=== PATIENT | female | born 1990 | race Caucasian/White ===

== ENCOUNTER → 2018-11-09 | Outpatient (CLI) | payer OTHER, SELFPAY ==
[2018-11-09 14:44] VITALS: BMI 18.7
[2018-11-09 22:49] LABS: Chlamydia Trachomatis by PCR Negative (Negative); Neisserai gonorrhoeae by PCR Negative (Negative); Probe Check PASS; Sample Adequacy Control PASS; Specimen Processing Control PASS
[2018-11-14 13:36] LABS: HPV Reflexed? NOT INDICATED
== END | disposition home or self-care (01) ==
PROVIDERS: Obstetrics & Gynecology; Referring Provider Nurse Practitioner Women's Health; Visit Provider Nurse Practitioner Women's Health
DX: Z34.90 Encounter for supervision of normal pregnancy, unspecified, unspecified trimester (principal)
CPT/HCPCS: 87086; 87088; 87491; 87591; 88175; G0145

== ENCOUNTER → 2018-11-12 | Outpatient (CLI) | payer OTHER, SELFPAY ==
[2018-11-09 14:44] VITALS: BMI 18.7
[2018-11-12 16:06] LABS: Absolute Lymphocyte Count 1.97 X10^3/uL (0.83-4.51); Basophil# 0.05 X10^3/uL; Basophil% 0.6 % (0-1); Eosinophil# 0.07 X10^3/uL; Eosinophils% 0.9 % (0-5); Hematocrit 38.7 % (37-47); Hemoglobin 13.3 g/dL (12.0-15.0); Lymphocyte # 1.97 X10^3/ul (4.0); Lymphocyte % 25.5 % (19-41); Mean Corp Hgb Conc 34.4 g/dL (32-36); Mean Corpuscular Hgb 31.4 pg (27.0-32.0); Mean Corpuscular Volume 91.3 fL (81-99); Mean Platelet Vol. 9.8 fl (6.2-12.0); Monocyte# 0.64 X10^3/uL; Monocyte% 8.3 % (0-10); NRBC Flagged by Analyzer 0 % (0-5); Neutrophil # 4.97 X10^3/uL (2.7-7.7); Neutrophil % 64.2 % (47-70); Platelet Count 259 K/mm3 (150-450); RBC Distribution Width CV 11.9 % (11.6-14.6); RBC Distribution Width SD 39.3 fl (35.1-43.9); Red Blood Count 4.24 M/mm3 (4.2-5.4); White Blood Count 7.7 K/mm3 (4.4-11.0)
[2018-11-12 16:37] LABS: AST(SGOT) 9 U/L (15-37); Alanine Aminotransfer ALT/SGPT 15 U/L (13-56); Albumin, Serum 3.4 g/dL (3.2-5.0); Alkaline Phosphatase 37 U/L (45-117); Anion Gap 7 (5-15); BUN 8 mg/dL (7-18); BUN/Creat Ratio 15.8 RATIO (10-20); Calcium,Total 8.4 mg/dL (8.5-10.1); Chloride 105 mmol/L (98-107); EST Glomerular Filtration Rate 155 mL/min (>60); Est Glom Filt Rate - Afr Amer 188 mL/min (>60); Globulin 3.4 g/dL (2.2-4.2); Glucose 94 mg/dL (74-106); Potassium 3.7 mmol/L (3.5-5.1); Protein, Total 6.8 g/dL (6.4-8.2); Sodium Level 139 mmol/L (136-145)
[2018-11-12 17:23] LABS: HIV - WCH Non-Reactive (Nonreactive)
[2018-11-19 02:40] LABS: Rapid Plasmin Reagin (RPR) NONREACTIVE (NONREACTIVE)
== END | disposition home or self-care (01) ==
LOC: LAB 15:23
PROVIDERS: Family Provider Family Medicine; PCP Family Medicine; Referring Provider Obstetrics & Gynecology; Visit Provider Obstetrics & Gynecology
DX: O09.299 Supervision of pregnancy with other poor reproductive or obstetric history, unspecified trimester (principal); Z3A.00 Weeks of gestation of pregnancy not specified
CPT/HCPCS: 36415; 80053; 85025; 86592; 86703; 86762; 86850; 86900; 86901

== ENCOUNTER → 2019-03-21 | Outpatient (CLI) | payer OTHER, SELFPAY ==
[2019-02-28 15:40] VITALS: BMI 18.7
[2019-03-21 15:43] LABS: Absolute Lymphocyte Count 1.81 X10^3/uL (0.83-4.51); Absolute Neutrophil Count 6.4 X10^3/uL (2.0-7.7); Basophil# 0.03 X10^3/uL; Basophil% 0.3 % (0-1); Eosinophil# 0.07 X10^3/uL; Eosinophils% 0.8 % (0-5); Hemoglobin 12.1 g/dL (12.0-15.0); Lymphocyte # 1.81 X10^3/ul (4.0); Lymphocyte % 20.1 % (19-41); Mean Corp Hgb Conc 33.6 g/dL (32-36); Mean Corpuscular Hgb 30.9 pg (27.0-32.0); Mean Corpuscular Volume 91.8 fL (81-99); Mean Platelet Vol. 9.8 fl (6.2-12.0); Monocyte# 0.65 X10^3/uL; Monocyte% 7.2 % (0-10); NRBC Flagged by Analyzer 0 % (0-5); Neutrophil # 6.35 X10^3/uL (2.7-7.7); Neutrophil % 70.6 % (47-70); Platelet Count 219 K/mm3 (150-450); RBC Distribution Width CV 12.8 % (11.6-14.6); RBC Distribution Width SD 41.8 fl (35.1-43.9); Red Blood Count 3.92 M/mm3 (4.2-5.4)
[2019-03-21 15:44] LABS: Glucose Challenge Gest 1H 50g 108 mg/dL (70-140)
[2019-03-22 09:21] LABS: Hepatitis B Surface Antigen Non-Reactive (Nonreactive)
== END | disposition home or self-care (01) ==
LOC: PAVLAB 14:55
PROVIDERS: PCP Family Medicine; Referring Provider Obstetrics & Gynecology; Visit Provider Obstetrics & Gynecology
DX: Z34.80 Encounter for supervision of other normal pregnancy, unspecified trimester (principal)
CPT/HCPCS: 36415; 82950; 85025; 87340

== ENCOUNTER → 2019-05-16 | Outpatient (CLI) | payer OTHER, SELFPAY ==
[2019-05-16 15:27] VITALS: BMI 18.7
== END | disposition home or self-care (01) ==
LOC: LAB 16:38 → LABSPEC 05-17 14:19
PROVIDERS: PCP Family Medicine; Referring Provider Obstetrics & Gynecology; Visit Provider Obstetrics & Gynecology
DX: Z34.80 Encounter for supervision of other normal pregnancy, unspecified trimester (principal)
CPT/HCPCS: 87081

== ENCOUNTER 2019-06-13 01:10 | Inpatient (IN) | payer OTHER, SELFPAY ==
[2019-02-28 15:40] VITALS: BMI 18.7
[2019-06-06 15:34] VITALS: BMI 18.7
[2019-06-12 22:03] VITALS: BP 124/78; PULSE 107; PULSE 93; TEMP 37.1; O2SAT 97
[2019-06-12 22:14] VITALS: BMI 24.3
[2019-06-13] VITALS (82 sets, daily range): BP systolic 98–208; BP diastolic 55–137; PULSE 84–151; RESP 16; TEMP 36.5–37.2; O2SAT 91–100
[2019-06-13] MEDS: Acetaminophen 500 MG Tablet 1000 MG PO (00:29)
[2019-06-13] MEDS: Lactated Ringers 500 ML 999 ML IV ×2 (01:34→05:54)
[2019-06-13 01:49] LABS: Absolute Lymphocyte Count 2.32 X10^3/uL (0.83-4.51); Absolute Neutrophil Count 11.4 X10^3/uL (2.0-7.7); Basophil# 0.09 X10^3/uL; Basophil% 0.6 % (0-1); Eosinophil# 0.02 X10^3/uL; Eosinophils% 0.1 % (0-5); Hematocrit 40.8 % (37-47); Hemoglobin 14.4 g/dL (12.0-15.0); Lymphocyte # 2.32 X10^3/ul (4.0); Lymphocyte % 15.4 % (19-41); Mean Corp Hgb Conc 35.3 g/dL (32-36); Mean Corpuscular Hgb 31.9 pg (27.0-32.0); Mean Corpuscular Volume 90.5 fL (81-99); Mean Platelet Vol. 10.1 fl (6.2-12.0); Monocyte# 0.99 X10^3/uL; Monocyte% 6.6 % (0-10); NRBC Flagged by Analyzer 0 % (0-5); Neutrophil # 11.42 X10^3/uL (2.7-7.7); Neutrophil % 75.6 % (47-70); Platelet Count 212 K/mm3 (150-450); RBC Distribution Width CV 12.7 % (11.6-14.6); RBC Distribution Width SD 41.1 fl (35.1-43.9); Red Blood Count 4.51 M/mm3 (4.2-5.4); White Blood Count 15.1 K/mm3 (4.4-11.0)
[2019-06-13] MEDS: Lactated Ringers 1,000 ML 200 ML IV ×3 (02:05→12:05)
[2019-06-13] MEDS: fentaNYL-bupivacaine (epidural) 100 ML BAG EPIDURAL ×2 (02:42→07:45)
--- NOTE | 2019-06-13 07:42 | HP.PCM_ITS ---
- Problem List (1) Active labor at term Status: Acute (2) Influenza vaccination declined Status: Acute (3) H/O pre-eclampsia in prior , currently Status: Acute Comment: Baby ASA baseline labs (4) Supervision of other normal Status: Acute Comment: PRR HUNG 06/08/19 boy Javier Barnett Spouse Sebastian (5) Status: Acute Qualifiers: Comment: Declines genetic, carrier and NTD. Anatomy US normal (6) H/O section Status: Acute Comment: TOLAC (7) hemorrhage Status: Acute Qualifiers: Comment: 2 weeks after- no blood transfusion needed. History Date of Admission: 06/13/19 Final HUNG: 06/08/19 Gestational age: 40 Weeks and 5 Days History of this : This is a 28 year-old, , at 40 weeks gestational age presents in active labor now made spontaneous change to 5 cm. Patient has had regular contractions starting last night and denies any loss of fluid has had some small amount of bloody show likely due to cervical change. Patient has a history of a primary for heart rate decelerations and is wanting to proceed with trial of labor after . Had 82% likely of success stomach calculator. Medical History: Medical History (Last Reviewed 06/06/19 @ 15:34 by Britta Dee) History of pre-eclampsia Z87.59 Surgical History: Surgical History (Last Reviewed 06/06/19 @ 15:34 by Britta Dee) delivery delivered O82 x1; decel Allergies No Known Allergies Allergy (Verified 06/12/19 22:16) Home Medications: Home Medications vitamin#30 30 mg iron-10 mg iron-folic acid 1 mg-omg3 capsule 1 cap PO DAILY cap 11/09/18 Aspirin [Aspir 81] 81 mg PO DAILY 06/13/19 Smoking Status: Never smoker NST - FHR Rate Baby A Baseline: 130 Variability:: Moderate Accelerations:: 15 x 15 Decelerations:: None NST Reactive:: Yes FHR Category:: Category I Uterine Activity:: q 2-4 History Past Pregnancies: Past PregnanciesPregancy History 2 Elective abortions Hx Para 1 Spontaneous abortions Hx # Term Pregnancies Ectopic pregnancies Hx # Pregnancies Multiple births # of living children Past Pregnancies Del. Date Name GA/Weeks Outcome Route Bth Weight Gen Labor Lgth Anesthesia Del [facility] Provider FOB 05/14/17 Anibal 39 live - full term 5.7 Male epidural [facility] Delivery Date: 05/14/17 On 11/09/18 @ 13:50 Monica Baker decel Labs: Mom's Labs & Results 06/13/19 06/13/19 01:31 01:31 WBC 15.1 H RBC 4.51 Hgb 14.4 Hct 40.8 MCV 90.5 MCH 31.9 MCHC 35.3 RDW Std Deviation 41.1 RDW Coeff of Janki 12.7 Plt Count 212 MPV 10.1 Immature Gran % (Auto) 1.700 H Neut % (Auto) 75.6 H Lymph % (Auto) 15.4 L [place] % (Auto) 6.6 Eos % (Auto) 0.1 Baso % (Auto) 0.6 Absolute Neuts (auto) 11.4 H Absolute Lymphs (auto) 2.32 Nucleated RBC % 0 Blood Type A POSITIVE Antibody Screen NEGATIVE Course Did the patient receive Yes care? Labs Blood Type: A RH: POSITIVE RPR/VDRL/Syphilis Nonreactive Rubella status Immune HbSAg Negative Date Done: 03/21/19 Chlamydia Negative Gonorrhea Negative HIV/AIDS Non-Reactive Group B Strep: Negative Current Obstetrical History Gestational Diabetes No Incompetent Cervix No Infertility No IUGR No Macrosomia No Hypertension/Pre-eclampsia No Placenta Previa/Abruption No PTL/PROM No Uterine anomaly No Oligohydramnios No Polyhydramnios No Multiple gestation No Past Medical History Asthma No Diabetes No Hypertension No Heart disease No Mitral valve prolapse No Neurologic/Seizure disorder/ No Migraines Kidney disease No Liver disease No Varicosities No Clotting disorders/Hx of DVT No Thyroid Dysfunction No Other medical diseases No Psychiatric disorders No Major trauma No Abnormal PAP smear No Sleep apnea No Mammogram in the last 2 years No Social History Marital Status: Alleged father Sebastian Edgar Hx Smoking No Smoking Status Never smoker Expected Delivery Method: Describe any other labor & delivery plans:: Expected Delivery Route/Plan. TOLAC. patient counseled regarding risks/benefits of trial of labor versus repeat . ACOG and uptodate education given to patient. 82 % likelihood of success per calculator. TOLAC consent form signed: yes. Labor Preferences-. labor support person: Sebastian. pain management options preferred: epidural. cut cord/dad catch: yes. : yes. PP control pl anned: []. discussed possible routes of delivery and associated risks: []. special requests: []. Specific Issue/Plans. flu vaccine: declined. tdap vaccine: declined. rhogam: na. LARC form signed: yes. movement and labor precautions reviewed. Problem list reviewed and updated with the most current plan of care details and appropriate orders placed. Relevant counseling for the gestational age provided. Continue routine care and follow up unless otherwise noted in visit notes/problem list details Review of Systems Constitutional: Denies: Fever, Malaise Eyes: Denies: Blurred vision, Vision Change HEENT: Denies: Head Aches, Visual Changes Cardiovascular: Denies: Chest Pain, Palpitations Respiratory: Denies: Cough, Shortness of Breath, Wheezing Gastrointestinal: Denies: Abdominal Pain, Diarrhea, Nausea, Vomiting Genitourinary: Denies: Dysuria, Hematuria Musculoskeletal: Denies: Joint Pain, Muscle pain Skin: Denies: Lesions, Rash Neurological: Denies: Blurred vision, Focal weakness, Headaches Psychiatric: Denies: Anxiety, Depression Endocrine: Denies: Heat/ Cold Intolerance Hematologic/ Lymphatic: Denies: Easy Bruising, Easy Bleeding Physical Exam Vitals: Vital Signs Temp Pulse BP Pulse Ox 98.6 F 96 104/61 99 06/13/19 07:26 06/13/19 07:27 06/13/19 07:27 06/13/19 07:27 General: Alert, Cooperative, No apparent distress HEENT: Atraumatic, Normocephalic. Negative for: Thyromegaly, Lymphadenopathy Cardiovascular: Regular rate Lungs: Normal air movement Abdomen: Soft, Non Tender, Gravid Neurological: Deep Tendon Reflexes 2+/4 and Symmetrical, Neuro grossly intact. Negative for: Clonus RESPIRATORY THERAPIST: Normal external genitalia. Negative for: Vulvar lesions Estimated gestational size: Appropriate for gestational size Presentation: Cephalic Cervix Dilation (cm): 5 Station: 0 Effacement (%): 90 Assessment/Plan All Active Problems (Last Reviewed 06/06/19 @ 15:34 by Britta Dee) Active labor at term (Acute) Influenza vaccination declined (Acute) H/O pre-eclampsia in prior , currently (Acute) Supervision of other normal (Acute) (Acute) H/O section (Acute) hemorrhage (Acute) This is a 28 year-old, , at 40 weeks gestational age presents in active labor desires trial of labor after Patient presents IAL, plan expectant management for , AROM clear fluid. Pitocin if no cervical change. IUPC placed.. Pain management: Epidural GBS negative. Management of any complications: TOLAC with consent form signed I have reviewed the [facility] and made any clinically relevant updates.
[2019-06-13] MEDS: Ondansetron 4 MG/2 ML Vial IV (12:00)
--- NOTE | 2019-06-13 12:33 | PCM.OPRPT ---
Problem List (1) Active labor at term Status: Acute (2) Influenza vaccination declined Status: Acute (3) H/O pre-eclampsia in prior , currently Status: Acute Comment: Baby ASA baseline labs (4) Supervision of other normal Status: Acute Comment: PRR HUNG 06/08/19 boy Javier Barnett Spouse Sebastian (5) Status: Acute Qualifiers: Comment: Declines genetic, carrier and NTD. Anatomy US normal (6) H/O section Status: Acute Comment: TOLAC (7) hemorrhage Status: Acute Qualifiers: Comment: 2 weeks after- no blood transfusion needed. Vaginal Delivery Maternal Presentation: Active Labor 28 yo @ 40w presents IAL desires TOLAC Amniotic Membrane Rupture Type: Artificial Amniotic Fluid Description: Clear Final HUNG: 06/08/19 Gestational age: 40 Weeks and 5 Days Date of Procedure: 06/13/19 Pre-Operative Diagnosis: ial Post-Operative Diagnosis: same Surgery/ Procedure Performed: Spontaneous Vaginal Delivery - Type of Anesthesia: Epidural Description of Procedure: Patient began pushing and delivered the head in the [JOSÉ] presentation. The head was delivered atraumatically [and a loose nuchal cord ?1 was identified and easily reduced over the 's head]. The anterior and posterior shoulders delivered without complication followed by the rest of the and the was placed on the maternal abdomen. Delayed cord clamping was employed for approximately 60 seconds. Cord was clamped and cut and gentle traction was applied to the cord and the placenta delivered spontaneously immediately following it was noted to be intact with three-vessel cord. The perineum and vagina were inspected and [noted to have no laceration]. EBL was [100 cc]. Patient and tolerated delivery well. Multi Select Codes - Urinary/Genital Urinary/Genital CPT Codes: 41056 delivery [facility]
[2019-06-13] MEDS: Oxytocin 30 units/NS 500 ml 30 UNITS/500 ML IV.SOLN 334 UNITS IV (13:30)
[2019-06-13] MEDS: 0.9% Saline Lock 10 ML Syringe IV (16:05)
--- NOTE | 2019-06-13 17:56 | NURSING ---
dr suarez made aware of elevated maternal heart rate during recovery; bria nugent; pt encouraged to drink PO fluids
[2019-06-13] MEDS: Senna/Docusate Sodium 1 Tablet PO (20:01)
[2019-06-14] MEDS: Naproxen 250 MG Tablet 500 MG PO ×2 (00:08→08:44)
[2019-06-14 00:28] VITALS: BP 112/82; PULSE 132; RESP 16; TEMP 37.3
--- NOTE | 2019-06-14 00:30 | NURSING ---
was communicated in report that pt has elevated HR. pt asymptomatic and states this has been normal for her. will continue to monitor closely.
[2019-06-14 03:39] VITALS: BP 93/54; PULSE 94; RESP 16; TEMP 36.4
--- NOTE | 2019-06-14 07:51 | PCM.PN.OB ---
Patient Problems: Active and Suspected Problems (Last Reviewed 06/06/19 @ 15:34 by Britta Dee) Active labor at term (Acute) Subjective: doing well no complaints pain controlled no CP SOB N V ambulating well tolerating po lochia moderate, going well - Physical Exam Vitals/I&O's: Vital Signs Temp Pulse Resp BP Pulse Ox 97.6 F L 94 16 93/54 L 97 06/14/19 03:39 06/14/19 03:39 06/14/19 03:39 06/14/19 03:39 06/13/19 15:59 Oxygen Delivery Method Room Air Weight: 150 lb 12.739 oz Body Mass Index (BMI) 24.3 Intake and Output for Last 24 Hours 06/12/19 06/13/19 06/14/19 23:59 23:59 23:59 Intake Total 3932.84 / 3932.84 800 / 800 Output Total 2850 / 2850 Balance 1082.84 / 1082.84 800 / 800 General: Alert, Oriented x3 Current Medications Acetaminophen (Tylenol) 1,000 mg PO Q8H PRN PRN PRN Reason: Pain Score 1-3/10 Bisacodyl (Dulcolax) 10 mg RECTAL UD PRN PRN Reason: If no BM Dibucaine (Dibucaine) 1 applic TOPICAL TID PRN PRN; Protocol PRN Reason: Discomfort Hydrocortisone (Hytone) 1 applic TOPICAL TID PRN PRN; Protocol PRN Reason: Discomfort Methylergonovine Maleate (Methergine) 0.2 mg IM X1 PRN PRN Reason: Excess bleeding/uterine atony Naproxen (Naprosyn) 500 mg PO Q8H PRN PRN PRN Reason: Pain Score 1-3/10 Last Admin: 06/14/19 00:08 Dose: 500 mg Documented by: Ondansetron HCl (Zofran) 4 mg IV Q4H PRN PRN PRN Reason: Nausea Oxycodone HCl (Oxyir) 5 - 10 mg PO Q4H PRN PRN PRN Reason: Pain Score 4-10/10 Senna/Docusate Sodium (Senokot-S, Harriet-Colace) 1 - 2 tablet PO DAILY PRN PRN PRN Reason: Constipation Last Admin: 06/13/19 20:01 Dose: 2 tablet Documented by: Simethicone (Mylicon) 80 mg PO PCHS PRN PRN Reason: Indigestion/Stomach pain Sodium Chloride () 5 - 15 ml IV UD PRN PRN Reason: SALINE FLUSH Last Admin: 06/13/19 16:05 Dose: 10 ml Documented by: Medical Necessity - Tobacco Use Smoking Status: Never smoker Assessment/Plan All Active Problems (Last Reviewed 06/06/19 @ 15:34 by Britta Dee) Active labor at term (Acute) Influenza vaccination declined (Acute) H/O pre-eclampsia in prior , currently (Acute) Supervision of other normal (Acute) (Acute) H/O section (Acute) hemorrhage (Acute) s/p PPD # 1 1. routine post delivery care 2. breast feeding- support given 3. rh positive 4. rubella immune
[2019-06-14 08:00] VITALS: BP 101/62; PULSE 85; RESP 16; TEMP 36.5
--- NOTE | 2019-06-14 11:06 | DCINST_ITS ---
Discharge Diet: No Restrictions Discharge Activity: Return to Normal Activity, May not drive while taking narcotic pain medications., May Shower May resume sexual activity in: 4-6 weeks Call your doctor if your incision/area has: Continuous Slow Oozing, Sudden Increased Bleeding, Increased Pain/ Swelling, Increased Redness, Foul Smelling Discharge Additional Instructions: If you experience any of the following, contact your healthcare provider. * Bleeding that soaks a pad every hour for 2 hours * Fever 100.4 or higher * Unrelieved incision or abdominal pain * Swelling, redness, discharge or bleeding from your incision or episiotomy site * Your incision begins to separate * Problems urinating (including inability to urinate or burning while urinating). * Visual changes * Severe headache * Flu-like symptoms * Pain or redness in one of both of your breasts * Pain, warmth, tenderness or swelling in your legs, especially the calf area * Frequent nausea and vomiting * Symptoms of depression or anxiety If you experience any of the following, call 911 or go to the nearest Emergency Room. * Chest pain * Problems breathing * Seizure activity * Partial or complete paralysis of a body part, slurred speech, weakness or drooping of the face, or a sudden inability to walk or hold your balance Allergies/Adverse Reactions: Allergies No Known Allergies Allergy (Verified 06/12/19 22:16) Medications to take at Discharge vitamin#30 30 mg iron-10 mg iron-folic acid 1 mg-omg3 capsule 1 cap PO DAILY cap 11/09/18 Aspirin [Aspir 81] 81 mg PO DAILY 06/13/19 Please Follow Up With: Hansa Mendoza MD - [phone] When: Call to make an appointment with your doctor in 6 weeks. If you had elevated Blood pressure or 4th degree laceration you will need to be seen in 2 weeks. Primary Care Physician: Perry Cevallos MD [Primary Care Provider] - Test Results: Test results from this visit will be discussed in further detail at your follow- up appointment, if applicable.
--- NOTE | 2019-06-14 11:06 | PCM.DCVAG ---
Discharge Diet: No Restrictions Discharge Activity: Return to Normal Activity, May not drive while taking narcotic pain medications., May Shower May resume sexual activity in: 4-6 weeks Call your doctor if your incision/area has: Continuous Slow Oozing, Sudden Increased Bleeding, Increased Pain/ Swelling, Increased Redness, Foul Smelling Discharge Additional Instructions: If you experience any of the following, contact your healthcare provider. Bleeding that soaks a pad every hour for 2 hours Fever 100.4 or higher Unrelieved incision or abdominal pain Swelling, redness, discharge or bleeding from your incision or episiotomy site Your incision begins to separate Problems urinating (including inability to urinate or burning while urinating). Visual changes Severe headache Flu-like symptoms Pain or redness in one of both of your breasts Pain, warmth, tenderness or swelling in your legs, especially the calf area Frequent nausea and vomiting Symptoms of depression or anxiety If you experience any of the following, call 911 or go to the nearest Emergency Room. Chest pain Problems breathing Seizure activity Partial or complete paralysis of a body part, slurred speech, weakness or drooping of the face, or a sudden inability to walk or hold your balance Allergies/Adverse Reactions: Allergies No Known Allergies Allergy (Verified 06/12/19 22:16) Medications to take at Discharge vitamin#30 30 mg iron-10 mg iron-folic acid 1 mg-omg3 capsule 1 cap PO DAILY cap 11/09/18 Aspirin [Aspir 81] 81 mg PO DAILY 06/13/19 Please Follow Up With: Hansa Mendoza MD - [phone] When: Call to make an appointment with your doctor in 6 weeks. If you had elevated Blood pressure or 4th degree laceration you will need to be seen in 2 weeks. Primary Care Physician: Perry Cevallos MD [Primary Care Provider] - Test Results: Test results from this visit will be discussed in further detail at your follow-up appointment, if applicable.
[2019-06-14 12:00] VITALS: BP 97/66; PULSE 93; RESP 16; TEMP 36.4
[2019-06-14] MEDS: Senna/Docusate Sodium 1 Tablet PO (14:30)
== END 2019-06-14 16:15 | disposition home or self-care (01) | DRG 807 ==
LOC: WPOUT 01:14 → WP 01:14
PROVIDERS: Admitting Provider Obstetrics & Gynecology; PCP Family Medicine; Referring Provider Obstetrics & Gynecology; Visit Provider Obstetrics & Gynecology
DX: O69.81X0 Labor and delivery complicated by cord around neck, without compression, not applicable or unspecified (principal); Z37.0 Single live birth; O34.219 Maternal care for unspecified type scar from previous cesarean delivery; Z3A.40 40 weeks gestation of pregnancy
CPT/HCPCS: 59025; 59050; 85025; 86850; 86900; 86901; 99218; J7120; A4216; G0378; J2405

== ENCOUNTER → 2020-08-06 15:57 | Outpatient (CLI) | payer OTHER, SELFPAY ==
[2020-08-06 15:30] VITALS: BMI 18.6
[2020-08-06 17:03] LABS: NATERA MAILED SPECIMEN
== END ==
PROVIDERS: PCP Family Medicine; Referring Provider Nurse Practitioner Women's Health; Visit Provider Nurse Practitioner Women's Health
DX: Z13.79 Encounter for other screening for genetic and chromosomal anomalies (principal); Z80.3 Family history of malignant neoplasm of breast
CPT/HCPCS: 36415

== ENCOUNTER 2021-04-15 09:24 | Outpatient (CLI) | payer OTHER, SELFPAY ==
[2021-04-15 12:07] LABS: Amphetamine Urine VISTA NEGATIVE (<1000 ng/mL); Barbiturate Urine VISTA NEGATIVE (< 200 ng/mL); Benzodiazepine Urine VISTA NEGATIVE (< 200 ng/mL); Cocaine Urine VISTA NEGATIVE (< 300 ng/mL); Ecstacy Urine VISTA NEGATIVE (< 500 ng/mL); Methadone Urine VISTA NEGATIVE (< 300 ng/mL); PCP Urine VISTA NEGATIVE (< 25 ng/mL); THC Urine VISTA NEGATIVE (< 50 ng/mL); Vista UDS pH Range 6
[2021-04-16 21:06] LABS: Chlamydia By Nucleic Acid AMP Negative (Negative)
[2021-04-17 14:14] LABS: Gonococcus By Nucleic Acid AMP Negative (Negative)
[2021-04-18 19:07] LABS: HPV APTIMA, High Risk Negative (Negative)
== END 2021-04-15 23:59 | disposition home or self-care (01) ==
PROVIDERS: PCP Family Medicine; Visit Provider Obstetrics & Gynecology
DX: Z34.90 Encounter for supervision of normal pregnancy, unspecified, unspecified trimester (principal)
CPT/HCPCS: 80307; 87086; 87088; 87491; 87591; 87624; 88175; G0145

== ENCOUNTER 2021-05-01 16:33 | Outpatient (CLI) | payer OTHER, SELFPAY | END 2021-05-01 23:59 | disposition home or self-care (01) | LOC: LAB 16:35 | PROVIDERS: PCP Family Medicine; Referring Provider Nurse Practitioner Women's Health; Visit Provider Nurse Practitioner Women's Health | DX: R82.71 Bacteriuria (principal) | CPT/HCPCS: 87086; 87088 ==

== ENCOUNTER → 2021-06-10 | Outpatient (CLI) | payer OTHER, SELFPAY ==
[2021-06-10 16:08] LABS: Absolute Lymphocyte Count 2.11 X10^3/uL (0.83-4.51); Absolute Neutrophil Count 5.3 X10^3/uL (2.0-7.7); Basophil# 0.04 X10^3/uL; Basophil% 0.5 % (0-1); Eosinophil# 0.11 X10^3/uL; Eosinophils% 1.3 % (0-5); Hematocrit 34.4 % (37-47); Hemoglobin 11.8 g/dL (12.0-15.0); Lymphocyte # 2.11 X10^3/ul (0.83-4.51); Lymphocyte % 25.5 % (19-41); Mean Corp Hgb Conc 34.3 g/dL (32-36); Mean Corpuscular Hgb 30.9 pg (27.0-32.0); Mean Corpuscular Volume 90.1 fL (81-99); Mean Platelet Vol. 9.3 fl (6.2-12.0); Monocyte# 0.61 X10^3/uL; Monocyte% 7.4 % (0-10); NRBC Flagged by Analyzer 0 % (0-5); Neutrophil # 5.32 X10^3/uL (2.7-7.7); Neutrophil % 64.5 % (47-70); Platelet Count 227 K/mm3 (150-450); RBC Distribution Width SD 42.5 fl (35.1-43.9); Red Blood Count 3.82 M/mm3 (4.2-5.4); White Blood Count 8.3 K/mm3 (4.4-11.0)
[2021-06-10 16:25] LABS: ALB/GLOB Ratio 0.8 RATIO (0.9-2.4); AST(SGOT) 13 U/L (15-37); Alanine Aminotransfer ALT/SGPT 16 U/L (13-56); Albumin, Serum 3.1 g/dL (3.2-5.0); Alkaline Phosphatase 37 U/L (45-117); Anion Gap 6 (5-15); BUN 11 mg/dL (7-18); BUN/Creat Ratio 22.6 RATIO (10-20); Calcium,Total 8.4 mg/dL (8.5-10.1); Chloride 106 mmol/L (98-107); Creatinine, Serum 0.49 mg/dL (0.55-1.02); EST Glomerular Filtration Rate 159 mL/min (>60); Est Glom Filt Rate - Afr Amer 192 mL/min (>60); Globulin 3.7 g/dL (2.2-4.2); Glucose 89 mg/dL (74-106); Potassium 3.3 mmol/L (3.5-5.1); Protein, Total 6.8 g/dL (6.4-8.2); Sodium Level 135 mmol/L (136-145)
[2021-06-10 16:31] LABS: Protein, Urine (Random) 6.1 mg/dL (<11.9); Protein:Creat Ratio 115 mg/g CRE (0-200)
[2021-06-11 10:21] LABS: HIV - WCH Non-Reactive (Nonreactive); Hepatitis B Surface Antigen Non-Reactive (Nonreactive); Hepatitis C Antibody Non-Reactive (Nonreactive); Rubella IgG Reactive (Nonreactive); Syphilis Antibodies Non-reactive
== END | disposition home or self-care (01) ==
PROVIDERS: PCP Family Medicine; Referring Provider Obstetrics & Gynecology; Visit Provider Obstetrics & Gynecology
DX: Z34.90 Encounter for supervision of normal pregnancy, unspecified, unspecified trimester (principal)
CPT/HCPCS: 36415; 80053; 82570; 84156; 85025; 86703; 86762; 86780; 86803; 86850; 86900; 86901; 87340

== ENCOUNTER → 2021-06-19 | Outpatient (CLI) | payer OTHER, SELFPAY ==
[2021-06-19 15:00] LABS: ALB/GLOB Ratio 0.9 RATIO (0.9-2.4); AST(SGOT) 12 U/L (15-37); Alanine Aminotransfer ALT/SGPT 16 U/L (13-56); Albumin, Serum 2.9 g/dL (3.2-5.0); Alkaline Phosphatase 36 U/L (45-117); Anion Gap 6 (5-15); BUN 8 mg/dL (7-18); BUN/Creat Ratio 16.5 RATIO (10-20); Calcium,Total 8.2 mg/dL (8.5-10.1); Chloride 109 mmol/L (98-107); Creatinine, Serum 0.48 mg/dL (0.55-1.02); EST Glomerular Filtration Rate 160 mL/min (>60); Est Glom Filt Rate - Afr Amer 193 mL/min (>60); Globulin 3.4 g/dL (2.2-4.2); Glucose 115 mg/dL (74-106); Potassium 3.6 mmol/L (3.5-5.1); Protein, Total 6.3 g/dL (6.4-8.2); Sodium Level 139 mmol/L (136-145)
== END | disposition home or self-care (01) ==
LOC: PAVLAB 14:14
PROVIDERS: PCP Family Medicine; Referring Provider Obstetrics & Gynecology; Visit Provider Obstetrics & Gynecology
DX: E87.6 Hypokalemia (principal); E87.1 Hypo-osmolality and hyponatremia
CPT/HCPCS: 36415; 80053

== ENCOUNTER → 2021-07-12 | Outpatient (CLI) | payer OTHER, SELFPAY | END | disposition home or self-care (01) | PROVIDERS: PCP Family Medicine; Visit Provider Obstetrics & Gynecology | DX: R82.71 Bacteriuria (principal) | CPT/HCPCS: 87086; 87088 ==

== ENCOUNTER → 2021-08-08 | Outpatient (CLI) | payer OTHER, SELFPAY ==
[2021-08-08 08:38] LABS: Absolute Neutrophil Count 5.6 X10^3/uL (2.0-7.7); Basophil# 0.04 X10^3/uL; Basophil% 0.5 % (0-1); Eosinophil# 0.04 X10^3/uL; Eosinophils% 0.5 % (0-5); Hematocrit 36.7 % (37-47); Hemoglobin 12.5 g/dL (12.0-15.0); Mean Corp Hgb Conc 34.1 g/dL (32-36); Mean Corpuscular Hgb 32.3 pg (27.0-32.0); Mean Corpuscular Volume 94.8 fL (81-99); Mean Platelet Vol. 9.5 fl (6.2-12.0); Monocyte# 0.57 X10^3/uL; NRBC Flagged by Analyzer 0 % (0-5); Neutrophil # 5.63 X10^3/uL (2.7-7.7); Neutrophil % 68.5 % (47-70); Platelet Count 197 K/mm3 (150-450); RBC Distribution Width CV 12.7 % (11.6-14.6); Red Blood Count 3.87 M/mm3 (4.2-5.4); White Blood Count 8.2 K/mm3 (4.4-11.0)
[2021-08-08 09:00] LABS: Glucose Challenge Gest 1H 50g 107 mg/dL (70-140)
== END | disposition home or self-care (01) ==
LOC: PAVLAB 08:14
PROVIDERS: Obstetrics & Gynecology; PCP Family Medicine; Referring Provider Obstetrics & Gynecology; Visit Provider Obstetrics & Gynecology
DX: O09.90 Supervision of high risk pregnancy, unspecified, unspecified trimester (principal)
CPT/HCPCS: 36415; 82950; 85025

== ENCOUNTER → 2021-10-24 | Outpatient (CLI) | payer OTHER, SELFPAY | END | disposition home or self-care (01) | LOC: LABSPEC 16:48 | PROVIDERS: PCP Family Medicine; Visit Provider Obstetrics & Gynecology | DX: Z34.90 Encounter for supervision of normal pregnancy, unspecified, unspecified trimester (principal) | CPT/HCPCS: 87081 ==

== ENCOUNTER → 2021-11-01 | Outpatient (CLI) | payer OTHER, SELFPAY | END | disposition home or self-care (01) | PROVIDERS: PCP Family Medicine; Visit Provider Obstetrics & Gynecology | DX: R35.0 Frequency of micturition (principal) | CPT/HCPCS: 87086; 87088 ==

== ENCOUNTER 2021-11-07 16:35 | Inpatient (IN) | payer OTHER, SELFPAY ==
[2021-11-07] VITALS (39 sets, daily range): BP systolic 89–136; BP diastolic 53–96; PULSE 92–137; TEMP 36.3–37.1; O2SAT 96–100; BMI 25.0
[2021-11-07] MEDS: Lactated Ringers 1,000 ML 999 ML IV (16:55)
[2021-11-07 17:34] LABS: Absolute Lymphocyte Count 2.43 X10^3/uL (0.83-4.51); Absolute Neutrophil Count 6.4 X10^3/uL (2.0-7.7); Basophil# 0.08 X10^3/uL; Basophil% 0.8 % (0-1); Eosinophil# 0.03 X10^3/uL; Eosinophils% 0.3 % (0-5); Hematocrit 39.5 % (37-47); Hemoglobin 13.4 g/dL (12.0-15.0); Lymphocyte # 2.43 X10^3/ul (0.83-4.51); Lymphocyte % 24.5 % (19-41); Mean Corp Hgb Conc 33.9 g/dL (32-36); Mean Corpuscular Hgb 31.5 pg (27.0-32.0); Mean Corpuscular Volume 92.9 fL (81-99); Mean Platelet Vol. 9.8 fl (6.2-12.0); Monocyte# 0.69 X10^3/uL; NRBC Flagged by Analyzer 0 % (0-5); Neutrophil # 6.41 X10^3/uL (2.7-7.7); Neutrophil % 64.6 % (47-70); Platelet Count 224 K/mm3 (150-450); RBC Distribution Width CV 12.9 % (11.6-14.6); RBC Distribution Width SD 43.5 fl (35.1-43.9); Red Blood Count 4.25 M/mm3 (4.2-5.4); White Blood Count 9.9 K/mm3 (4.4-11.0)
[2021-11-07] MEDS: Lactated Ringers 1,000 ML 50 ML IV (17:43)
[2021-11-07] MEDS: LACTATED RINGERS 500 ML 999 ML IV (17:54)
--- NOTE | 2021-11-07 19:37 | HP.PCM.OB_ITS ---
HPI - General General Date of Admission: 11/07/21 HPI Narrative SAMANTHA BARNES, is a 31 F who presents secondary to contractions and cat II tracing in the office. she was on the monitor and had a late decel on the monitor. overall upon evaluation she has a cat I tracing but had a prevoius isolated decel. Maternal Data Information HUNG Calculator Estimated Delivery Date Method Current WG Current Estimate 11/19/21 Ultrasound #1 38w 2d Other Estimates 11/25/21 LMP (Certain) 37w 3d PFSH [facility] Medical History (Updated 11/07/21 @ 19:[address] Hansa Mendoza MD) Asymptomatic bacteriuria History of pre-eclampsia Vaginal after Home Medications aspirin 81 mg capsule 81 mg PO DAILY Hx of pre-e 11/07/21 [History Last Taken 11/06/21 21:00] vitamin#30 30 mg iron-10 mg iron-folic acid 1 mg-omg3 capsule 1 cap PO DAILY 11/07/21 [History Last Taken 11/06/21 21:00] Allergy/AdvReac Type Severity Reaction Status Date / Time No Known Allergies Allergy Verified 11/01/21 15:35 Family History Mother Breast cancer, Onset Age: 41 Grandfather Breast cancer Father Melanoma Surgical History delivery delivered Social History household members: spouse and children number of children: 2 Smoking Status: Never smoker alcohol intake: never substance use type: does not use caffeine: No what type of physical activity do you participate in: none seatbelt use: always do you feel safe at home: Yes additional social history: Pythian 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 Date Name GA/Weeks Outcome Route Bth Weight Gen Labor Lgth Anesthesia Del Locatn Provider FOB 05/14/17 Anibal 39 live - full term 5.7 Male epidural [facility] [place] 06/13/19 Javier 40 live - full term Male epidu ral [facility] Delivery Date: 05/14/17 Last Updated by: Mini Bess NP, VOCATIONAL GUIDANCE COUNSELOR-C decel; Pre E Visit Details Expected Delivery Route/Plan patient counseled regarding risks/benefits of trial of labor versus repeat . ACOG/uptodate education given to patient. [] % likelihood of success per calculator TOLAC consent form signed: [] Labor Preferences- CB/BF classes: no labor support person: eSbastian labor intervention preferences: [] pain management options preferred: epidural cut cord/dad catch: yes : yes PP control planned: discussed discussed possible routes of delivery and associated risks: [] special requests: [] Plans Covid status: discussed vaccination Flu vaccine: discussed Tdap vaccine: declined Rhogam: na LARC form signed: yes movement and labor precautions reviewed. Problem list reviewed and updated with the most current plan of care details and appropriate orders placed. Relevant counseling for the gestational age provided. Continue routine care and follow up unless otherwise noted in visit notes/problem list details OB Flowsheet Initial Weight: 114 lb Date -?-?-?-?-?-?-?-?-?-?-?-?- EGA Weight BP Urine Prot -?-?-?-?-?-?-?-?-?-?-?-?- Glucose FHR FuHt Pres Dilation -?-?-?-?-?-?-?-?-?-?-?-?- Effaced St Visit Note 04/15/21 -?-?-?-?-?-?-?--?-?-?-?-?- 8w 6d 114 lb (+0 oz) 100/60 -?-?-?-?-?-?-?-?-?-?-?-?- 170 -?-?-?-?-?-?-?-?-?-?-?-?- SM- CRL NOT cons with LMP 19.6 mm 05/01/21 -?-?-?-?-?-?-?-?-?-?-?-?- 11w 1d 115 lb (+16 oz) 102/60 -?-?-?-?-?-?-?-?-?-?-?-?- -?-?-?-?-?-?-?-?-?-?-?-?- urine culture on ly 05/15/21 -?-?-?-?-?-?-?-?-?-?-?-?- 13w 1d 119 lb 8 oz (+5 lb 8 oz) 100/80 Negative -?-?-?-?-?-?-?-?-?-?-?-?- Negative 130 -?-?-?-?-?-?-?-?-?-?-?-?- JV- heart tones on bedside scan today. formal anatomy scan ordered. 06/10/21 -?-?-?-?-?-?-?-?-?-?-?-?- 16w 6d 128 lb 2 oz (+14 lb 2 oz) 90/54 Negative -?-?-?-?-?-?-?-?-?-?-?-?- Negative 153 -?-?-?-?-?-?-?-?-?--?-?-?- MH-NO, VB. Doing well. Will get PNL today. Anatomy US 07/0807/12/21 -?-?-?-?-?-?-?-?-?-?-?-?- 21w 3d 130 lb 8 oz (+16 lb 8 oz) 100/78 Negative -?-?-?-?-?-?-?-?-?-?-?-?- Negative 147 -?-?-?-?-?-?-?-?-?-?-?-?- JV- anterior kristi centa previa. has follow up at 28 weeks. She is aware that if has accreta will need to deliver in [place]. 08/08/21 -?-?-?-?-?-?-?-?-?-?-?-?- 25w 2d 133 lb 3 oz (+19 lb 3 oz) 100/60 Negative -?-?-?-?-?-?-?-?-?-?-?-?- Negative 150 -?-?-?-?-?-?-?-?-?-?-?-?- JV- no lof, vagi nal bleeding, or dec fm. has follow up mfm scan soon to look at placenta to rule out accreta 08/30/21 -?-?-?-?-?-?-?-?-?-?-?-?- 28w 3d 136 lb (+22 lb) 98/54 Negative -?-?-?-?-?-?-?-?-?-?-?-?- Negative 140 28 -?-?-?-?-?-?-?-?-?-?-?-?- SM- no vb lof go od fm no regular ctx reviewed us with patient 09/13/21 -?-?-?-?-?-?-?-?-?-?-?-?- 30w 3d 141 lb (+27 lb) 100/62 Negative -?-?-?-?-?-?-?-?-?-?-?-?- Negative 140 31 -?-?-?-?-?-?-?-?-?-?-?-?- SM- no vb lof go od fm nor egular ctx discussed pubic bone pain 09/24/21 -?-?-?-?-?-?-?-?-?-?-?-?- 32w 0d 142 lb 6 oz (+28 lb 6 oz) 96/58 Negative -?-?-?-?-?-?-?-?-?-?-?-?- Negative 148 32 -?-?-?-?-?-?-?-?-?-?-?-?- MH-No VB, LOF. G ood FM. Larc signed 10/09/21 -?-?-?-?-?-?-?-?-?-?-?-?- 34w 1d 147 lb 4 oz (+33 lb 4 oz) 147 lb 4 oz (+33 lb 4 oz) 94/60 Negative -?-?-?-?-?-?-?-?-?-?-?-?- Negative 155 33 -?-?-?-?-?-?-?-?-?-?-?-?- JV- no lof, v ag inal bleeding, or dec fm., plan for bedside scan to confirm vtx next visit 10/24/21 -?-?-?-?-?-?-?-?-?-?-?-?- 36w 2d 148 lb (+34 lb) 112/72 Negative -?-?-?-?-?-?-?-?-?-?-?-?- Negative 140 36 Cephalic 1 .5 -?-?-?-?-?-?-?-?-?-?-?-?- 30 -2 SM- no vb lof good fm no reuglar ctx gbs done 11/01/21 -?-?-?-?-?-?-?-?-?-?-?-?- 37w 3d 148 lb 4 oz (+34 lb 4 oz) 129/82 Negative -?-?-?-?-?-?-?-?-?-?-?-?- Negative 147 37 Cephalic 1 .5 -?-?-?-?-?-?-?-?-?-?-?-?- 50 -2 JV- pt has active yeast infection today and some burning with urination. She has leuks in urine. will treat for both today. labor precautions discussed GBS neg. 11/07/21 -?-?-?-?-?-?-?-?-?-?-?-?- 38w 2d 150 lb 9.211 oz (+36 lb 9.211 oz) 122/76 122/76 136/78 118/96 122/65 -?-?-?-?-?-?-?-?-?-?-?-?- 140 -?-?-?-?-?-?-?-?-?-?-?-?- NST FHR Rate Baby A Baseline: 140 Variability:: Moderate Accelerations:: 15 x 15 Decelerations:: None NST Reactive:: Yes FHR Category:: Category I Uterine Activity:: q3-5 ROS Constitutional Constitutional: Reports systems reviewed and no addt'l complaints, except as documented ENT HEENT: Reports systems reviewed and no addt'l complaints, except as documented Cardiovascular Cardiovascular: Reports systems reviewed and no addt'l complaints, except as documented Respiratory/Chest Respiratory/Chest: Reports systems reviewed and no addt'l complaints, except as documented Gastrointestinal Gastrointestinal: Reports systems reviewed and no addt'l complaints, except as documented and nausea; Denies abdominal pain Genitourinary Genitourinary: Reports systems reviewed and no addt'l complaints, except as documented, contractions Details: present and frequency (regular ) and movement Details: present Musculoskeletal Musculoskeletal: Reports systems reviewed and no addt'l complaints, except as documented Integumentary Integumentary: Reports as per HPI Neurologic Neurologic: Reports systems reviewed and no addt'l complaints, except as documented Endocrine Endocrinology: Reports systems reviewed and no addt'l complaints, except as documented Vital Signs Vital Signs Vital Signs: 11/07/21 16:58 11/07/21 16:58 11/07/21 17:00 Temperature Temperature Source Pulse Rate 113 H Blood Pressure 122/76 H BP Systolic 122 BP Diastolic 76 Pulse Ox 98 11/07/21 17:00 11/07/21 17:00 11/07/21 17:00 Temperature Temperature Source Temporal Pulse Rate 96 Blood Pressure 122/76 H BP Systolic 122 BP Diastolic 76 Pulse Ox 11/07/21 17:00 11/07/21 17:00 11/07/21 17:01 Temperature 98.8 F Temperature Source Pulse Rate 102 H Blood Pressure BP Systolic BP Diastolic Pulse Ox 98 11/07/21 18:32 11/07/21 18:32 11/07/21 18:32 Temperature 98.1 F Temperature Source Pulse Rate 137 H Blood Pressure 136/78 H BP Systolic 136 BP Diastolic 78 Pulse Ox 11/07/21 18:32 11/07/21 18:32 11/07/21 18:32 Temperature Temperature Source Temporal Pulse Rate 113 H Blood Pressure BP Systolic BP Diastolic Pulse Ox 97 11/07/21 18:32 11/07/21 18:37 11/07/21 19:01 Temperature 98.0 F Temperature Source Pulse Rate 106 H 99 Blood Pressure BP Systolic BP Diastolic Pulse Ox 11/07/21 19:01 11/07/21 19:06 11/07/21 19:06 Temperature Temperature Source Pulse Rate 100 Blood Pressure BP Systolic BP Diastolic Pulse Ox 97 97 11/07/21 19:11 11/07/21 19:11 11/07/21 19:16 Temperature Temperature Source Pulse Rate 100 100 Blood Pressure BP Systolic BP Diastolic Pulse Ox 98 11/07/21 19:16 11/07/21 19:21 11/07/21 19:21 Temperature Temperature Source Pulse Rate 105 H Blood Pressure BP Systolic BP Diastolic Pulse Ox 98 98 11/07/21 19:26 11/07/21 19:26 11/07/21 19:32 Temperature Temperature Source Pulse Rate 116 H Blood Pressure 118/96 H BP Systolic 118 BP Diastolic 96 Pulse Ox 98 11/07/21 19:32 11/07/21 19:32 Temperature Temperature Source Pulse Rate 108 H Blood Pressure BP Systolic BP Diastolic Pulse Ox 99 Weight Weight: 150 lb 9.211 oz Body Mass Index (BMI) 25.0 Physical Exam Const alert, oriented x3 and healthy appearing Constitutional Narrative: uncomfortable with contractions HEENT normocephalic and moist oral mucous membranes Head and Scalp: atraumatic Neck full ROM, no lymphadenopathy, supple and thyroid normal General: trachea midline Thyroid: thyroid normal Lymph Lymphatic: no lymphadenopathy noted Chest inspection of chest normal Resp normal respiratory effort Cardio regular rate GI normal to inspection, nondistended, normoactive bowel sounds, soft to palpation and non-tender Inspection: gravid external exam normal Bimanual Exam - Vag & Uterus: uterus non-tender Manual OB Exam: estimated gestational size appropriate, presentation cephalic, dilated, effaced and station Extremity normal to inspection General Extremity: Negative for edema Skin no rashes or lesions noted Neuro deep tendon reflexes 2+ bilaterally Motor Exam: strength 5/5 throughout and clonus absent Psych mental status grossly normal Labs Labs Labs: Blood Type A POSITIVE Antibody Screen NEGATIVE Hct 39.5 % (37-47) Hgb 13.4 g/dL (12.0-15.0) Syphilis Total Ab Non-reactive Rubella IgG Antibody Reactive (Nonreactive) Hep Bs Antigen Non-Reactive (Nonreactive) Chlamydia DNA ([facility]) Negative (Negative) Neisseria gonorrhoeae DNA ([facility]) Negative (Negative) HIV 1&2 Antibody Non-Reactive (Nonreactive) Glucose 1 Hr 50 gm 107 mg/dL (70-140) Rhogam given: No Assessment & Plan (1) History of : COMMENT: 1st - distress (2) History of : COMMENT: 2nd , wants TOLAC (3) Supervision of high risk , antepartum: COMMENT: PRR HUNG:11/19/21 surprise PC:Javier Barnett. Spouse:Sebastian (4) History of pre-eclampsia: COMMENT: 81 mg asa at 14 weeks, baseline labs. (5) Asymptomatic bacteriuria: COMMENT: repeat negative (6) : QUALIFIERS: Weeks of gestation: 37 weeks Qualified Code(s): Z3A.37 - 37 weeks gestation of COMMENT: GBS neg. Declines genetic and carrier screen, 08/29 follow up growth US nl. (7) Late deceleration of heart rate: COMMENT: proceed with delivery
[2021-11-07] MEDS: fentaNYL-bupivacaine (epidural) 100 ML BAG EPIDURAL ×2 (19:43→23:55)
[2021-11-07] MEDS: Oxytocin 30 units/NS 500 ml 30 UNITS/500 ML IV.SOLN IV (23:23)
[2021-11-07] MEDS: Lactated Ringers 1,000 ML 200 ML IV (23:24)
[2021-11-08] VITALS (43 sets, daily range): BP systolic 91–131; BP diastolic 52–79; PULSE 85–134; RESP 16; TEMP 36.4–37.8; O2SAT 93–100
[2021-11-08] MEDS: LACTATED RINGERS 500 ML 999 ML IV (01:35)
[2021-11-08] MEDS: 0.9% Normal Saline 100 ML IV.SOLN. 300 ML INTRA-UTER (03:05)
[2021-11-08] MEDS: Ondansetron 4 MG/2 ML Vial IV (03:10)
[2021-11-08] MEDS: 0.9% Saline Lock 10 ML Syringe IV (03:11)
[2021-11-08] MEDS: fentaNYL-bupivacaine (epidural) 100 ML BAG EPIDURAL (04:20)
[2021-11-08] MEDS: Oxytocin 30 units/NS 500 ml 30 UNITS/500 ML IV.SOLN 334 UNITS IV (04:50)
--- NOTE | 2021-11-08 05:12 | EX.PCM.OBRPT ---
Assessment & Plan (1) Late deceleration of heart rate: COMMENT: proceed with delivery (2) History of : COMMENT: 1st - distress (3) History of : COMMENT: 2nd , wants TOLAC (4) Supervision of high risk , antepartum: COMMENT: PRR HUNG:11/19/21 surprise PC:Javier Barnett. Spouse:Sebastian (5) : QUALIFIERS: Weeks of gestation: 37 weeks Qualified Code(s): Z3A.37 - 37 weeks gestation of COMMENT: GBS neg. Declines genetic and carrier screen, 08/29 follow up growth US nl. (6) Asymptomatic bacteriuria: COMMENT: repeat negative (7) History of pre-eclampsia: COMMENT: 81 mg asa at 14 weeks, baseline labs. (8) Vaginal after , delivered, current hospitalization: COMMENT: SM 38 boy shyam Maternal Data Information HUNG Calculator Estimated Delivery Date Method Current WG Current Estimate 11/19/21 Ultrasound #1 38w 3d Other Estimates 11/25/21 LMP (Certain) 37w 4d Vaginal Delivery Operative Information Date of Procedure: 11/08/21 Pre-Operative Diagnosis: IAL Post-Operative Diagnosis: same Surgery / Procedure Performed: Spontaneous Vaginal Delivery Type of Anesthesia: Epidural Special Medications: none Estimated Blood Loss: 100 Fluids Replaced: crystalloid Findings Description of Procedure: Patient was evaluated by nursing due to a heart rate variable and upon evaluation the head had spontaneously delivered therefore the rest of the delivered for the nurse, and then i arrived immediately after. the infant was placed on the maternal abdomen. Delayed cord clamping was employed for approximately 60 seconds. Cord was clamped and cut and gentle traction was applied to the cord and the placenta delivered spontaneously immediately following it was noted to be intact with three-vessel cord. The perineum and vagina were inspected and noted to have a first degree laceration repaired in the usual fashion with 3-0 rapide. EBL was 100 cc. Patient and infant tolerated delivery well. Presentation: JOSÉ Amniotic Membrane Rupture Type: Artificial Amniotic Fluid Description: Clear Placental Delivery Description: Spontaneous Placenta Disposition: [facility] Cord Vessel Description: 3 Vessels Cord Entanglement: None Infant A Gender: Male Delayed Cord Clamping: Yes Post Vaginal Delivery Medications Given After Delivery: IV Pitocin Episiotomy Description: None Laceration: None Complication Complications: None Procedures Urinary/Genital [id number]: [id number] delivery global pkg
[2021-11-08] MEDS: Lactated Ringers 1,000 ML 999 ML IV (05:15)
--- NOTE | 2021-11-08 05:22 | DCINST_ITS ---
Discharge Instructions Diet Discharge Diet: No restrictions Activity Discharge Activity: Return to Normal Activity, May Drive, May Shower and May Take a Tub Bath (in 4 weeks) May resume sexual activity in: 6-8 weeks (after seen by OB provider) Weight Bearing Status: Full weight bearing Lifting Restrictions: none Dressing / Incision Call your doctor if you observe: Fever of 101 or Higher, Inability to urinate, Using more than 1 pad per hour (for more than 2 hours in a row or more), Shortness of breath, Dizziness, Chest pain and - (headache not controlled with tylenol, change in vision) Follow Up Care When: in 6 weeks for visit, call the office to make the appointment. If you had elevated blood pressures call the office to be seen within 1 week. Test Results: Test results from this visit will be discussed in further detail at your follow- up appointment, if applicable. Discharge Plan Admission Admit Date/Time: 11/07/21 16:35 Attending Provider: Hansa Mendoza Primary Care Provider: Perry Cevallos Discharge Orders/Prescriptions Prescriptions: No Action PNV #[id number] 30 mg iron-10 mg iron-1 mg capsule 1 cap PO DAILY aspirin 81 mg Capsule 81 mg PO DAILY Referrals / Follow Up: Perry Cevallos MD [Primary Care Provider] - Disposition Disposition (needs filled in before D/C Order can be placed): Home, Self Care
--- NOTE | 2021-11-08 05:29 | NURSING ---
provider walked in immediately after delivered. provider delivered placenta. alma delia caught infant. when this RN entered room and went to perform vaginal exam, the RN pulled leg back and the head was already out. timer hit.
[2021-11-08] MEDS: Naproxen 500 MG Tablet PO ×2 (11:34→18:30)
--- NOTE | 2021-11-08 11:47 | NURSING ---
pt states rt leg is still numb, urinary cath. maintained at present.
--- NOTE | 2021-11-08 16:15 | CASEMGMT ---
Social Work -Validation of Advance Directives Met with patient/mother of baby (MOB) introducing to self and social work role and reason for visit related to follow-up on living will. MOB initially stated this would be a topic for the MOB's who was out of the room. Educated MOB to what a living will is in advance directives versus a regular well. MOB reports to have a regular will not healthcare advance directives. MOB's arrived back to the room and confirmed this. Checked in with MOB as to how MOB is doing. MOB reports delivery went well, with this delivery being the MOB's third child. There is a four 22-year-old at home. The father of baby will have about 2 weeks off of work to help with the transition home. MOB reports some slight depression after the first child reporting there were many transitions in life at that time including the FOB getting a new job and a traumatic experience. No depression after the second child and reports to be feeling fine now. MOB declined any type of information on mood or anxiety disorders. Reports to have a good support system from the FOB as well as the MOB's parents who live just about 5 minutes away. No identified concerns with substance use and drug screen was negative on 04/15/2021. No voiced concerns from nursing staff regarding parent-child interactions or bonding. MOB holding baby during social work visit, appropriate and gentle and care of baby. -SID Monet, DRY HOUSE ATTENDANT *This note was generated with [employer] dictation software. It may contain incorrect words, spelling, and punctuation that were not noted in review of the chart prior to signing*
[2021-11-08] MEDS: Senna/Docusate Sodium 1 Tablet PO (18:30)
[2021-11-09] VITALS (7 sets, daily range): BP systolic 85–107; BP diastolic 57–60; PULSE 78–102; RESP 16; TEMP 36.4–36.9; O2SAT 97–98
--- NOTE | 2021-11-09 09:01 | PCM.PN.OB ---
Subjective Subjective Patient doing well without complaints. Tolerating PO. Ambulating and voiding without difficulty. feeding well. Denies chest pain, shortness of breath, calf pain/swelling, fevers, chills, lightheadedness. Objective Data Objective Data Vital Signs: Vital Signs Temp Pulse Resp BP Pulse Ox O2 Del Method 97.5 F L 88 16 85/57 L 100 Room Air 11/09/21 05:24 11/09/21 05:25 11/09/21 05:25 11/09/21 05:25 11/08/21 06:59 11/09/21 05:25 Oxygen Delivery Method Room Air Weight: 150 lb 9.211 oz Body Mass Index (BMI) 25.0 Intake & Output: Intake and Output for Last 24 Hours 11/07/21 11/08/21 11/09/21 23:59 23:59 23:59 Intake Total 2805.67 / 2805.67 3230.07 / 3230.07 Output Total 1800 / 1800 2100 / 2100 Balance 1005.67 / 1005.67 1130.07 / 1130.07 Lab / Micro Data Result Diagrams: 11/07/21 16:55 Micro: Microbiology 11/07/21 17:10 Nasal Secretion SARS-CoV-2 Antigen (Rapid) - Final ROS Constitutional Constitutional: Reports systems reviewed and no addt'l complaints, except as documented Cardiovascular Cardiovascular: Reports systems reviewed and no addt'l complaints, except as documented Respiratory/Chest Respiratory/Chest: Reports systems reviewed and no addt'l complaints, except as documented Gastrointestinal Gastrointestinal: Reports systems reviewed and no addt'l complaints, except as documented Physical Exam Const alert, oriented x3 and no apparent distress HEENT Head and Scalp: atraumatic Resp normal respiratory effort GI soft to palpation and non-tender Bimanual Exam - Vag & Uterus: uterus non-tender Uterus Palpation: uterus fundus firm (below Umbilicus) Assessment & Plan (1) Vaginal after , delivered, current hospitalization: COMMENT: 38 boy shyam PLAN: Plan s/p PPD # 1 1. routine post delivery care 2. breast feeding- support given 3. rh positive 4. rubella immune
== END 2021-11-09 12:51 | disposition home or self-care (01) | DRG 807 ==
PROVIDERS: Admitting Provider Obstetrics & Gynecology; PCP Family Medicine; Visit Provider Obstetrics & Gynecology
DX: O76 Abnormality in fetal heart rate and rhythm complicating labor and delivery (principal); Z37.0 Single live birth; O34.219 Maternal care for unspecified type scar from previous cesarean delivery; Z3A.37 37 weeks gestation of pregnancy; R82.71 Bacteriuria; O70.0 First degree perineal laceration during delivery; Z79.82 Long term (current) use of aspirin; Z79.899 Other long term (current) drug therapy
CPT/HCPCS: 59025; 59050; 85025; 86850; 86900; 86901; 87426; 99218; J7120; A4216; G0378; J2405

== ENCOUNTER → 2023-12-23 | Outpatient (CLI) | payer OTHER, SELFPAY ==
[2023-12-23 12:19] LABS: Absolute Lymphocyte Count 1.36 X10^3/uL (0.83-4.51); Absolute Neutrophil Count 5.4 X10^3/uL (2.0-7.7); Basophil# 0.05 X10^3/uL; Basophil% 0.7 % (0-1); Eosinophil# 0.06 X10^3/uL; Eosinophils% 0.8 % (0-5); Hematocrit 38.9 % (37-47); Hemoglobin 13.2 g/dL (12.0-15.0); Lymphocyte # 1.36 X10^3/ul (0.83-4.51); Mean Corp Hgb Conc 33.9 g/dL (32-36); Mean Corpuscular Hgb 30.8 pg (27.0-32.0); Mean Corpuscular Volume 90.9 fL (81-99); Monocyte# 0.62 X10^3/uL; Monocyte% 8.2 % (0-10); NRBC Flagged by Analyzer 0 % (0-5); Neutrophil # 5.43 X10^3/uL (2.7-7.7); Neutrophil % 71.8 % (47-70); Platelet Count 265 K/mm3 (150-450); RBC Distribution Width CV 12.2 % (11.6-14.6); RBC Distribution Width SD 40.2 fl (35.1-43.9); Red Blood Count 4.28 M/mm3 (4.2-5.4); White Blood Count 7.6 K/mm3 (4.4-11.0)
[2023-12-23 12:25] LABS: AST(SGOT) 11 U/L (15-37); Alanine Aminotransfer ALT/SGPT 17 U/L (13-56); Albumin, Serum 3.7 g/dL (3.2-5.0); Alkaline Phosphatase 44 U/L (45-117); Anion Gap 7 (5-15); BUN 9 mg/dL (7-18); BUN/Creat Ratio 16.4 RATIO (10-20); Calcium,Total 8.9 mg/dL (8.5-10.1); Chloride 104 mmol/L (98-107); Creatinine, Serum 0.55 mg/dL (0.55-1.02); EST Glomerular Filtration Rate 136 mL/min (>60); Est Glom Filt Rate - Afr Amer 164 mL/min (>60); Globulin 3.6 g/dL (2.2-4.2); Glucose 98 mg/dL (74-106); Potassium 3.5 mmol/L (3.5-5.1); Protein, Total 7.3 g/dL (6.4-8.2); Sodium Level 135 mmol/L (136-145)
[2023-12-23 13:05] LABS: HIV - WCH Non-Reactive (Nonreactive); Hepatitis B Surface Antigen Non-Reactive (Nonreactive); Hepatitis C Antibody Non-Reactive (Nonreactive); Rubella IgG Reactive (Nonreactive); Syphilis Antibodies Non-reactive
[2023-12-25 07:08] LABS: Chlamydia By Nucleic Acid AMP Negative (Negative); Gonococcus By Nucleic Acid AMP Negative (Negative)
== END | disposition home or self-care (01) ==
LOC: BWCLAB 10:49
PROVIDERS: PCP Family Medicine; Referring Provider Obstetrics & Gynecology; Visit Provider Obstetrics & Gynecology
DX: O09.299 Supervision of pregnancy with other poor reproductive or obstetric history, unspecified trimester (principal); Z3A.00 Weeks of gestation of pregnancy not specified
CPT/HCPCS: 36415; 80053; 85025; 86703; 86762; 86780; 86803; 86850; 86900; 86901; 87086; 87340; 87491; 87591

== ENCOUNTER → 2024-04-12 | Outpatient (CLI) | payer OTHER, SELFPAY | END | disposition home or self-care (01) | LOC: LABSPEC 10:47 | PROVIDERS: PCP Family Medicine; Referring Provider Obstetrics & Gynecology; Visit Provider Obstetrics & Gynecology | DX: R30.0 Dysuria (principal) | CPT/HCPCS: 87086 ==

== ENCOUNTER → 2024-05-10 | Outpatient (CLI) | payer OTHER, SELFPAY ==
[2024-05-10 08:26] LABS: Absolute Lymphocyte Count 1.35 X10^3/uL (0.83-4.51); Absolute Neutrophil Count 6.5 X10^3/uL (2.0-7.7); Basophil# 0.08 X10^3/uL; Basophil% 0.9 % (0-1); Eosinophil# 0.06 X10^3/uL; Eosinophils% 0.7 % (0-5); Hematocrit 37.4 % (37-47); Lymphocyte # 1.35 X10^3/ul (0.83-4.51); Lymphocyte % 15.6 % (19-41); Mean Corp Hgb Conc 34.8 g/dL (32-36); Mean Corpuscular Hgb 32.2 pg (27.0-32.0); Mean Corpuscular Volume 92.6 fL (81-99); Mean Platelet Vol. 9.3 fl (6.2-12.0); Monocyte# 0.54 X10^3/uL; Monocyte% 6.3 % (0-10); NRBC Flagged by Analyzer 0 % (0-5); Neutrophil # 6.45 X10^3/uL (2.7-7.7); Neutrophil % 74.6 % (47-70); Platelet Count 221 K/mm3 (150-450); RBC Distribution Width SD 43.9 fl (35.1-43.9); Red Blood Count 4.04 M/mm3 (4.2-5.4); White Blood Count 8.6 K/mm3 (4.4-11.0)
[2024-05-10 09:54] LABS: Glucose Challenge Gest 1H 50g 110 mg/dL (70-140); HIV Nonreactive (Nonreactive)
[2024-05-10 11:54] LABS: Syphilis Antibodies Nonreactive (Nonreactive)
== END | disposition home or self-care (01) ==
PROVIDERS: Obstetrics & Gynecology; PCP Family Medicine; Referring Provider Nurse Practitioner Women's Health; Visit Provider Nurse Practitioner Women's Health
DX: O09.92 Supervision of high risk pregnancy, unspecified, second trimester (principal); Z13.1 Encounter for screening for diabetes mellitus; Z3A.00 Weeks of gestation of pregnancy not specified
CPT/HCPCS: 36415; 82950; 85025; 86703; 86780

== ENCOUNTER 2024-07-05 12:53 | Outpatient (CLI) | payer OTHER, SELFPAY ==
[2024-07-05 13:09] VITALS: BP 99/58; PULSE 87; RESP 16; TEMP 36.6
[2024-07-05] MEDS: LACTATED RINGERS 500 ML 999 ML IV ×2 (14:15→16:56)
[2024-07-05] MEDS: 0.9% Saline Lock 10 ML Syringe IV ×5 (14:22→18:22)
[2024-07-05] MEDS: Ondansetron 4 MG/2 ML Vial IM (14:22)
[2024-07-05 14:30] LABS: Hematocrit 38.9 % (37-47); Hemoglobin 13.4 g/dL (12.0-15.0); Mean Corp Hgb Conc 34.4 g/dL (32-36); Mean Corpuscular Hgb 31.5 pg (27.0-32.0); Mean Corpuscular Volume 91.5 fL (81-99); Mean Platelet Vol. 9.8 fl (6.2-12.0); Platelet Count 201 K/mm3 (150-450); RBC Distribution Width CV 13.1 % (11.6-14.6); RBC Distribution Width SD 43.3 fl (35.1-43.9); Red Blood Count 4.25 M/mm3 (4.2-5.4); White Blood Count 12.6 K/mm3 (4.4-11.0)
[2024-07-05 14:42] LABS: Protein, Urine (Random) 21.2 mg/dL (0.0-12.0); Protein:Creat Ratio 253 mg/g CRE (0-200)
[2024-07-05 14:47] LABS: AST(SGOT) 16 U/L (<=31); Alanine Aminotransfer ALT/SGPT 10 U/L (<=34); Creatinine, Serum 0.52 mg/dL (0.70-1.20); EST Glomerular Filtration Rate 126 (>60); Uric Acid 5.5 mg/dL (2.6-6.0)
[2024-07-05 16:02] VITALS: BP 94/51; PULSE 92
[2024-07-05 16:10] LABS: Bacteria 0 SEEN /hpf (None Seen); Mucous, Urine 0 SEEN /hpf (<or=2+)
[2024-07-05 16:25] LABS: Color, Urine Yellow (Yellow); Glucose, Dipstick Normal (Normal); Leukocyte Esterase-Dipstick 25 /ul (Negative); Nitrite-Dipstick Negative (Negative); Occult Blood-Urine Negative /ul (Negative); Protein-Dipstick 30 mg/dl (Negative); Specific Gravity, Urine 1.005 (1.002-1.030); Urine Bilirubin Dipstick Negative (Negative); Urine Clarity Sl. Cloudy (Clear); Urine Urobilinogen Normal (Normal)
[2024-07-05 16:58] LABS: Ketone-Dipstick 150 mg/dl (Negative)
[2024-07-05 17:10] VITALS: BMI 25.4
[2024-07-05 17:24] LABS: Red Blood Cells-Urine 0-5 SEEN /hpf (0-5); Squamous Epithelial Cells - UA 0-5 SEEN /hpf (5-10); White Blood Cells 0-5 SEEN /hpf (0-5)
--- NOTE | 2024-07-05 17:54 | OB.TRI.PN_ITS ---
Progress Notes Date of Service: 07/05/24 Progress Note: Patient presents for triage evaluation secondary to headache and dizzyness at 36 weeks FHT: 140 Moderate variability reactive no decelerations category I tracing [place]: rare Contractions Assessment and plan: urine and pre e labs normal, Reactive NST, reassuring maternal and status patient discharged to home to follow-up in office. See problem list details for additional plan information. Laboratory Studies: Laboratory Tests 07/05/24 07/05/24 Range/Units 15:00 14:15 WBC 12.6 H (4.4-11.0) K/mm3 RBC 4.25 (4.2-5.4) M/mm3 Hgb 13.4 (12.0-15.0) g/dL Hct 38.9 (37-47) % MCV 91.5 (81-99) fL MCH 31.5 (27.0-32.0) pg MCHC 34.4 (32-36) g/dL RDW Std Deviation 43.3 (35.1-43.9) fl RDW Coeff of Janki 13.1 (11.6-14.6) % Plt Count 201 (150-450) K/mm3 MPV 9.8 (6.2-12.0) fl Creatinine 0.52 L (0.70-1.20) mg/dL Est GFR (MDRD) Non-Af 126 (>60) Uric Acid 5.5 (2.6-6.0) mg/dL AST 16 (<=31) U/L ALT 10 (<=34) U/L Urine Color Yellow (Yellow) Urine Clarity Sl. Cloudy (Clear) Urine pH 7.0 (5.0 - 8.0) Ur Specific [place] 1.005 (1.002-1.030) Urine Protein 30 H (Negative) mg/dl Urine Glucose (UA) Normal (Normal) mg/dl Urine Ketones 150 A* (Negative) mg/dl Urine Occult Blood Negative (Negative) /ul Urine Nitrite Negative (Negative) Urine Bilirubin Negative (Negative) mg/dL Urine Urobilinogen Normal (Normal) mg/dl Ur Leukocyte Esterase 25 H (Negative) /ul Urine RBC 0-5 SEEN (0-5) /hpf Urine WBC 0-5 SEEN (0-5) /hpf Ur Squamous Epith Cells 0-5 SEEN (5-10) /hpf Urine Bacteria 0 SEEN (None Seen) /hpf Urine Mucus 0 SEEN (<or=2+) /hpf U Random Total Protein 21.2 H (0.0-12.0) mg/dL Urine Creatinine 83.90 (28.00-217.00) mg/dL Protein/Creatinin Ratio 253 H (0-200) mg/g CRE Charges/Coding Multi Select Codes Visit Charges Office Visit/Consults: 87499 OV L3 Est 20min Urinary/Genital Urinary/Genital CPT Codes: 12450-01 non-stress test Interp Assessment & Plan (1) Dehydration during : PLAN: IV fluids zofran tylenol Reactive NST OK to d/c home (2) Frequent UTI: COMMENT: last 2 deliveries developed UTI 's - plan prophylactic antibiotics after delivery (macrobid) (3) Supervision of high-risk : QUALIFIERS: Trimester: third trimester Qualified Code(s): O09.93 - Supervision of high risk , unspecified, third trimester COMMENT: PRR,, HUNG 08/02/24, girl Jeanne PC Javier Barnett Jacob, Sebastian (4) Hx of pre-eclampsia in prior , currently : COMMENT: baseline labs ordered, recommend 81 mg ASA at 14 weeks (5) Hx successful (vaginal after ), currently : COMMENT: plan TOLAC again. 2 previous VBACs (6) Hx of section: COMMENT: 1st (7) : QUALIFIERS: Weeks of gestation: 34 weeks Qualified Code(s): Z3A.34 - 34 weeks gestation of COMMENT: normal anatomy, declined NIPT & Carrier testing
[2024-07-05] MEDS: Ondansetron 4 MG/2 ML Vial IV (18:22)
== END 2024-07-05 18:41 | disposition home or self-care (01) ==
LOC: WPOUT 12:59 → WP 13:00
PROVIDERS: PCP Family Medicine; Referring Provider Advanced Practice Midwife; Visit Provider Advanced Practice Midwife
DX: O99.283 Endocrine, nutritional and metabolic diseases complicating pregnancy, third trimester (principal); O99.891 Other specified diseases and conditions complicating pregnancy; R51.9 Headache, unspecified; R42 Dizziness and giddiness; E86.0 Dehydration; Z3A.36 36 weeks gestation of pregnancy
CPT/HCPCS: 96374; 96361; 96372; 36415; 59025; 59050; 81001; 82565; 82570; 84156; 84450; 84460; 84550; 85027; 99221; A4216; G0378; J2405

== ENCOUNTER → 2024-07-07 | Outpatient (CLI) | payer OTHER, SELFPAY | END | disposition home or self-care (01) | LOC: LABSPEC 11:48 | PROVIDERS: PCP Family Medicine; Referring Provider Obstetrics & Gynecology; Visit Provider Obstetrics & Gynecology | DX: O09.93 Supervision of high risk pregnancy, unspecified, third trimester (principal); Z3A.00 Weeks of gestation of pregnancy not specified | CPT/HCPCS: 87081 ==

== ENCOUNTER 2024-07-12 09:35 | Outpatient (CLI) | payer OTHER, SELFPAY ==
[2024-07-12 10:00] VITALS: BMI 24.2
[2024-07-12] MEDS: Lactated Ringers 1,000 ML 999 ML IV (10:17)
[2024-07-12 10:20] VITALS: BP 103/69; PULSE 89; RESP 16; TEMP 36.9
[2024-07-12 10:26] LABS: Hematocrit 37.8 % (37-47); Hemoglobin 13.5 g/dL (12.0-15.0); Mean Corp Hgb Conc 35.7 g/dL (32-36); Mean Corpuscular Hgb 32.1 pg (27.0-32.0); Mean Corpuscular Volume 89.8 fL (81-99); Mean Platelet Vol. 9.6 fl (6.2-12.0); Platelet Count 228 K/mm3 (150-450); RBC Distribution Width CV 12.8 % (11.6-14.6); RBC Distribution Width SD 41.4 fl (35.1-43.9); Red Blood Count 4.21 M/mm3 (4.2-5.4); White Blood Count 8.4 K/mm3 (4.4-11.0)
[2024-07-12 10:44] LABS: AST(SGOT) 17 U/L (<=31); Alanine Aminotransfer ALT/SGPT 12 U/L (<=34); Creatinine, Serum 0.53 mg/dL (0.70-1.20); EST Glomerular Filtration Rate 125 (>60); Estimated Creatinine Clearance 141.33 ml/min (50-250); Uric Acid 5.4 mg/dL (2.6-6.0)
[2024-07-12 10:45] LABS: Protein, Urine (Random) 6.5 mg/dL (0.0-12.0); Protein:Creat Ratio 225 mg/g CRE (0-200)
--- NOTE | 2024-07-12 10:59 | US_ITS ---
PROCEDURE: OB LIMITED WITH BIOMETRICS 07/12/2024 REASON FOR EXAM: GROWTH US TECHNIQUE: High resolution obstetric ultrasound performed using a 2D transducer. Standard views obtained, including biometry, anatomy survey, and Doppler studies. COMPARISON: None FINDINGS There is a live intrauterine . Position = cephalic cardiac activity = 130 beats per minute KATIE = 8.3 cm, visually normal. Placenta = grade 2, anterior, within normal limits. Adnexa = not visualized. BPD = 9.1 cm, 36 weeks 6 days, OFD = 11.5 cm Head circumference = 32.9 cm, 37 weeks 3 days, abdominal circumference = 33.5 cm, 37 weeks 2 days Femur length = 7.2 cm, 36 weeks 5 days Estimated weight = 3150 g, +/-473 g, 102nd percentile Estimated age = 37 weeks 0 days Estimated due date by current ultrasound = August 02, 2024 survey = not performed. US/OB Limited With Biometrics IMPRESSION: Estimated age = 37 weeks 0 days Estimated due date by current ultrasound = August 02, 2024 Reading Location: [facility]
[2024-07-12] MEDS: Lactated Ringers 1,000 ML 200 ML IV (11:08)
[2024-07-12] MEDS: Ondansetron 4 MG/2 ML Vial IV (11:08)
--- NOTE | 2024-07-12 14:20 | OB.TRI.PN_ITS ---
Progress Notes Date of Service: 07/12/24 Progress Note: Patient presents for triage evaluation secondary to vertigo at 37.0 weeks FHT: 145 Moderate variability reactive no decelerations category I tracing [place]: rare Contractions Assessment and plan: pre e labs normal, growth US normal, KATIE borderline low. repeat next visit. suspected UTI from dip in office. Rx sent to pharmacy. Reactive NST, reassuring maternal and status patient discharged to home to follow-up at next visit. See problem list details for additional plan information. Laboratory Studies: Laboratory Tests 07/12/24 Range/Units 10:15 WBC 8.4 (4.4-11.0) K/mm3 RBC 4.21 (4.2-5.4) M/mm3 Hgb 13.5 (12.0-15.0) g/dL Hct 37.8 (37-47) % MCV 89.8 (81-99) fL MCH 32.1 H (27.0-32.0) pg MCHC 35.7 (32-36) g/dL RDW Std Deviation 41.4 (35.1-43.9) fl RDW Coeff of Janki 12.8 (11.6-14.6) % Plt Count 228 (150-450) K/mm3 MPV 9.6 (6.2-12.0) fl Creatinine 0.53 L (0.70-1.20) mg/dL Estim Creat Clear Calc 141.33 (50-250) ml/min Est GFR (MDRD) Non-Af 125 (>60) Uric Acid 5.4 (2.6-6.0) mg/dL AST 17 (<=31) U/L ALT 12 (<=34) U/L U Random Total Protein 6.5 (0.0-12.0) mg/dL Urine Creatinine 28.80 (28.00-217.00) mg/dL Protein/Creatinin Ratio 225 H (0-200) mg/g CRE Charges/Coding Multi Select Codes Urinary/Genital Urinary/Genital CPT Codes: 57390-63 non-stress test Interp Assessment & Plan (1) Amniotic fluid index borderline low: COMMENT: 37 weeks-KATIE 8.3 repeat in 1 week (2) UTI (urinary tract infection) during : COMMENT: 37 weeks (3) Vertigo: (4) Dehydration during : (5) Frequent UTI: COMMENT: last 2 deliveries developed UTI 's - plan prophylactic antibiotics after delivery (macrobid) (6) Supervision of high-risk : QUALIFIERS: Trimester: third trimester Qualified Code(s): O09.93 - Supervision of high risk , unspecified, third trimester COMMENT: PRR,, HUNG 08/02/24, [facility] Javier Barnett Jacob, Sebastian (7) Hx of pre-eclampsia in prior , currently : COMMENT: baseline labs ordered, recommend 81 mg ASA at 14 weeks (8) Hx successful (vaginal after ), currently : COMMENT: plan TOLAC again. 2 previous VBACs (9) Hx of section: COMMENT: 1st (10) : QUALIFIERS: Weeks of gestation: 37 weeks Qualified Code(s): Z3A.37 - 37 weeks gestation of COMMENT: normal anatomy, declined NIPT & Carrier testing
== END 2024-07-12 13:40 | disposition home or self-care (01) ==
LOC: WPOUT 09:48 → WP 09:48
PROVIDERS: PCP Family Medicine; Referring Provider Advanced Practice Midwife; Visit Provider Advanced Practice Midwife
DX: O23.43 Unspecified infection of urinary tract in pregnancy, third trimester (principal); Z3A.37 37 weeks gestation of pregnancy
CPT/HCPCS: 96374; 96361; 59025; 59050; 76816; 82565; 82570; 84156; 84450; 84460; 84550; 85027; 99221; G0378; J2405

== ENCOUNTER 2024-07-14 13:15 | Inpatient (IN) | payer OTHER, SELFPAY ==
[2024-07-14] VITALS (45 sets, daily range): BP systolic 94–137; BP diastolic 55–82; PULSE 78–112; RESP 16; TEMP 36.2–37; O2SAT 96–100; BMI 23.1
[2024-07-14 09:22] LABS: Mucous, Urine 0 SEEN /hpf (<or=2+)
[2024-07-14 09:24] LABS: Color, Urine Yellow (Yellow); Glucose, Dipstick Normal (Normal); Ketone-Dipstick Negative (Negative); Leukocyte Esterase-Dipstick 500 /ul (Negative); Nitrite-Dipstick Negative (Negative); Occult Blood-Urine 150 /ul (Negative); Protein-Dipstick 15 mg/dl (Negative); Urine Bilirubin Dipstick Negative (Negative); Urine Clarity Clear (Clear); Urine Urobilinogen Normal (Normal)
[2024-07-14 11:47] LABS: Bacteria 1+ /hpf (None Seen); Red Blood Cells-Urine 0-5 SEEN /hpf (0-5); Squamous Epithelial Cells - UA 5-10 SEEN /hpf (5-10); White Blood Cells 10-25 SEEN /hpf (0-5)
[2024-07-14] MEDS: Lactated Ringers 1,000 ML 50 ML IV (15:11)
[2024-07-14 15:39] LABS: Absolute Lymphocyte Count 1.37 X10^3/uL (0.83-4.51); Absolute Neutrophil Count 6.2 X10^3/uL (2.0-7.7); Basophil# 0.03 X10^3/uL; Basophil% 0.4 % (0-1); Eosinophil# 0.02 X10^3/uL; Eosinophils% 0.2 % (0-5); Hematocrit 39.7 % (37-47); Hemoglobin 13.9 g/dL (12.0-15.0); Lymphocyte # 1.37 X10^3/ul (0.83-4.51); Lymphocyte % 16.7 % (19-41); Mean Corpuscular Hgb 31.7 pg (27.0-32.0); Mean Corpuscular Volume 90.6 fL (81-99); Mean Platelet Vol. 9.6 fl (6.2-12.0); Monocyte% 6.1 % (0-10); NRBC Flagged by Analyzer 0 % (0-5); Neutrophil # 6.18 X10^3/uL (2.7-7.7); Neutrophil % 75.1 % (47-70); Platelet Count 231 K/mm3 (150-450); RBC Distribution Width CV 12.7 % (11.6-14.6); RBC Distribution Width SD 41.8 fl (35.1-43.9); Red Blood Count 4.38 M/mm3 (4.2-5.4); White Blood Count 8.2 K/mm3 (4.4-11.0)
[2024-07-14] MEDS: fentaNYL-bupivacaine (epidural) 100 ML BAG EPIDURAL ×2 (16:17→20:39)
[2024-07-14] MEDS: Lactated Ringers 1,000 ML 200 ML IV (16:25)
[2024-07-14 16:56] LABS: Syphilis Antibodies Nonreactive (Nonreactive)
[2024-07-14] MEDS: Mag Hydrox/Al Hydrox/Simeth 30 ML UDC PO (18:12)
[2024-07-14] MEDS: Ondansetron 4 MG/2 ML Vial IV (19:35)
[2024-07-14] MEDS: 0.9% Saline Lock 10 ML Syringe IV (19:35)
--- NOTE | 2024-07-14 21:11 | HP.PCM.OB_ITS ---
HPI - General General Date of Admission: 07/14/24 HPI Narrative SAMANTHA BARNES, is a 34 F who presents IAL regular ctx with cerivcla change Maternal Data Information HUNG Calculator Estimated Delivery Date Method Current WG Current Estimate 08/02/24 LMP (Certain) 37w 2d PFSH PFSH Medical History Family history of breast cancer Vaginal after , delivered, current hospitalization Vaginal after Asymptomatic bacteriuria History of pre-eclampsia Home Medications ?Medication ?Instructions ?Recorded ?Last Taken ?Type multivit-min no.71-iron fum 28 1 cap PO DAILY pregnanc y 12/08/23 07/13/24 20:00 History mg-folate no.1 1 mg-dha 300 mg 1 cap capsule (PNV-[place]) ondansetron 4 mg disintegrating 4 mg PO Q8H PRN nausea and 12/23/23 07/12/24 21:00 Rx tablet vomiting #60 tabs 4 mg aspirin 81 mg tablet 81 mg PO DAILY 07/05/24/10/10 20:00 History fosfomycin tromethamine 3 gram 3 g PO ONCE UTI #1 ea 0 07/12/24 07/12/24 19:00 Rx oral packet 3 g meclizine 12.5 mg tablet 12.5 mg PO TID-QID PRN dizzi ness 07/12/24 07/13/24 21:00 Rx #60 tabs 12.5 mg Allergy/AdvReac Type Severity Reaction Status Date / Time No Known Allergies Allergy Verified 07/14/24 09:04 Family History Mother Breast cancer, Onset Age: 41 Grandfather No problems noted. Father Melanoma Grandfather No problems noted. 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 Date Name GA/Weeks Outcome Route Bth Weight Infant Gen Labor Lgth Anesthesia Del Locatn Provider FOB 05/14/17 Anibal 39 live - full term 5.[facility] Javier [facility] live - full term 8# 7oz [facility] epid ural [facility] NIEV[facility] 11/08/21 Tim 38 live - full term 7#7oz [facility]ur al [facility] Hansa Cortes Delivery Date: 05/14/17 Last Updated by: Mini Bess JAVASCRIPT ENGINEER, JAVASCRIPT ENGINEER-C decel; Pre E Delivery Date: 11/08/21 Last Updated by: Maxine Rodas see problem list for complications, and 38 maynor tim. Visit Details Expected Delivery Route/Plan patient counseled regarding risks/benefits of trial of labor versus repeat . ACOG/uptodate education given to patient. [] % likelihood of success per calculator TOLAC consent form signed: [] Labor Preferences- CB/BF classes: no labor support person: Sebastian labor intervention preferences: [] pain management options preferred: epidural cut cord/dad catch: cord : yes PP control planned: discussed discussed possible routes of delivery and associated risks: [] special requests: [] Plans Covid status: [] Flu vaccine: [] Tdap vaccine: declines Rhogam: na LARC form signed: yes Problem list reviewed and updated with the most current plan of care details and appropriate orders placed. Relevant counseling for the gestational age provided. Continue routine care and follow up unless otherwise noted in visit notes/problem list details OB Flowsheet Initial Weight: 113 lb Date -?-?-?-?-?-?-?-?-?-?-?-?- EGA Weight BP Urine Prot -?-?-?-?-?-?-?-?-?-?-?-?- Glucose FHR FuHt Pres Dilation -?-?-?-?-?-?-?-?-?-?-?-?- Effaced St Visit Note 12/23/23 -?-?-?-?-?-?-?-?-?-?-?-?- 8w 1d 113 lb 4 oz (+4 oz) 129/81 -?-?-?-?-?-?-?-?-?-?-?-?- 170 -?-?-?-?--?-?-?-?-?-?-?-?- SM- CRL cons wit h LMP SM- CRL 2.1cm cons with LMP 01/20/24 -?-?-?-?-?-?-?-?-?-?-?-?- 12w 1d 123 lb (+10 lb) 116/81 Negative -?-?-?-?-?-?-?-?-?-?-?-?- Negative 168 -?-?-?-?-?-?-?-?-?-?-?-?- MH-No VB. Nausea improving. Br US to confirm FHT. MFM US ordered 02/18/24 -?-?-?-?-?-?-?-?-?-?-?-?- 16w 2d 127 lb 4 oz (+14 lb 4 oz) 116/72 Negative -?-?-?-?-?-?-?-?-?-?-?-?- Negative 145 -?-?-?-?-?-?-?-?-?-?-?-?- KW- no vb/crampi ng. slight flutters. anatomy US scheduled. 03/15/24 -?-?-?-?-?-?-?-?-?-?-?-?- 20w 0d 133 lb 6 oz (+20 lb 6 oz) 112/64 Negative -?-?-?-?-?-?-?-?-?-?-?-?- Negative 150 -?-?-?-?-?-?-?-?-?-?-?-?- -No VB, LOF. G ood FM. Denies concerns 04/12/24 -?-?-?-?-?-?-?-?-?-?-?-?- 24w 0d 140 lb 4 oz (+27 lb 4 oz) 111/67 Negative -?-?-?-?-?-?-?-?-?-?-?-?- Negative 150 -?--?-?-?-?-?-?-?-?-?-?-?- SM- no vb lof go od fm nroe gular ctx 05/10/24 -?-?-?-?-?-?-?-?-?-?-?-?- 28w 0d 144 lb 6 oz (+31 lb 6 oz) 100/64 Negative -?-?-?-?-?-?-?-?-?-?-?-?- Negative 142 28 -?-?-?-?-?-?-?-?-?-?-?-?- -No VB,LOF. Go od Fm. 28 wk labs pending. Declines tdap. Larc done 05/26/24 -?-?-?-?-?-?-?-?-?-?-?-?- 30w 2d 145 lb 4 oz (+32 lb 4 oz) 103/68 Trace -?-?-?-?-?-?-?-?-?-?-?-?- Negative 141 30 -?-?-?-?-?-?-?-?-?-?-?-?- JV- no complaint s today. drives an hour to see us. Normal 28 week labs. rto in 2 weeks. JV- no complaints today. dale ves an hour to see us. Normal 28 week labs. States gets UTI's after deliveries. plan for prophylactic abx after delivery. (added to problem list) rto in 2 weeks. 06/09/24 -?-?-?-?-?-?-?-?-?-?-?-?- 32w 2d 145 lb 2 oz (+32 lb 2 oz) 110/71 Negative -?-?-?-?-?-?-?-?-?-?-?-?- Negative 142 32 -?-?-?-?-?-?-?-?-?-?-?-?- KW- no vb/lof/ct x. good fm. no concerns 06/23/24 -?-?-?-?-?-?-?-?-?-?-?-?- 34w 2d 148 lb 4 oz (+35 lb 4 oz) 99/62 Negative -?-?-?-?-?-?-?-?-?-?-?-?- Negative 160 34 -?-?-?-?-?-?-?-?-?-?-?-?- JV- no concerns today. plan gbs next visit. 07/07/24 -?-?-?-?-?-?-?-?-?-?-?-?- 36w 2d 152 lb (+39 lb) 135/86 Negative -?-?-?-?-?-?-?-?-?-?-?-?- Negative 135 37 Cephalic 3 -?-?-?-?-?-?-?-?-?-?-?-?- SM- no vb lof go od fm nro egualr ctx gbs done 07/12/24 -?-?-?-?-?-?-?-?-?-?-?-?- 37w 0d 119/80 Negative -?-?-?-?-?-?-?-?-?-?-?-?- Negative 140 -?-?-?-?-?-?-?-?-?-?-?-?- KW- no vb/lof/ct x. good fm. Still having significant vertigo and mild headache from last week. To [facility] for hydration and pre e labs. urine shows UTI. will give ATB in [facility]. KW- no vb/lof/ctx. good fm. Still having significant vertigo and mild headache from last week. To [facility] for hydration and pre e labs. urine shows UTI. will give ATB in [facility]. using meclizine from urgent care with minimal relief. NST FHR Rate Baby A Baseline: 140 Variability:: Moderate Accelerations:: 15 x 15 Decelerations:: None NST Reactive:: Yes FHR Category:: Category I Uterine Activity:: q3-5 ROS Constitutional Constitutional: Reports systems reviewed and no addt'l complaints, except as documented ENT HEENT: Reports systems reviewed and no addt'l complaints, except as documented Cardiovascular Cardiovascular: Reports systems reviewed and no addt'l complaints, except as documented Respiratory/Chest Respiratory/Chest: Reports systems reviewed and no addt'l complaints, except as documented Gastrointestinal Gastrointestinal: Reports systems reviewed and no addt'l complaints, except as documented and nausea; Denies abdominal pain Genitourinary Genitourinary: Reports systems reviewed and no addt'l complaints, except as documented, contractions Details: present and frequency (regular ) and movement Details: present Musculoskeletal Musculoskeletal: Reports systems reviewed and no addt'l complaints, except as documented Integumentary Integumentary: Reports as per HPI Neurologic Neurologic: Reports systems reviewed and no addt'l complaints, except as documented Endocrine Endocrinology: Reports systems reviewed and no addt'l complaints, except as documented Vital Signs Vital Signs Vital Signs: 07/14/24 09:04 07/14/24 09:04 07/14/24 09:04 Temperature Temperature Source Temporal Pulse Rate 86 Respiratory Rate Blood Pressure 113/74 BP Systolic 113 BP Diastolic 74 Pulse Ox 07/14/24 09:04 07/14/24 09:04 07/14/24 13:12 Temperature 97.9 F Temperature Source Temporal Pulse Rate Respiratory Rate 16 Blood Pressure BP Systolic BP Diastolic Pulse Ox 07/14/24 13:12 07/14/24 13:12 07/14/24 15:30 Temperature 98.6 F Temperature Source Pulse Rate Respiratory Rate 16 Blood Pressure 118/82 H BP Systolic 118 BP Diastolic 82 Pulse Ox 07/14/24 15:30 07/14/24 15:30 07/14/24 15:30 Temperature Temperature Source Oral Pulse Rate 108 H 86 Respiratory Rate Blood Pressure BP Systolic BP Diastolic Pulse Ox 07/14/24 15:30 07/14/24 15:30 07/14/24 15:30 Temperature 98.6 F Temperature Source Pulse Rate Respiratory Rate 16 Blood Pressure BP Systolic BP Diastolic Pulse Ox 100 07/14/24 16:09 07/14/24 16:09 07/14/24 16:09 Temperature Temperature Source Pulse Rate 96 93 Respiratory Rate Blood Pressure 137/75 H BP Systolic 137 BP Diastolic 75 Pulse Ox 07/14/24 16:09 07/14/24 16:09 07/14/24 16:12 Temperature Temperature Source Pulse Rate Respiratory Rate 16 Blood Pressure 127/79 H BP Systolic 127 BP Diastolic 79 Pulse Ox 100 07/14/24 16:12 07/14/24 16:14 07/14/24 16:14 Temperature Temperature Source Pulse Rate 94 93 Respiratory Rate Blood Pressure BP Systolic BP Diastolic Pulse Ox 100 07/14/24 16:16 07/14/24 16:16 07/14/24 16:16 Temperature Temperature Source Pulse Rate 95 Respiratory Rate 16 Blood Pressure 124/80 H BP Systolic 124 BP Diastolic 80 Pulse Ox 07/14/24 16:19 07/14/24 16:19 07/14/24 16:19 Temperature Temperature Source Pulse Rate 97 Respiratory Rate Blood Pressure 121/76 H BP Systolic 121 BP Diastolic 76 Pulse Ox 100 07/14/24 16:19 07/14/24 16:24 07/14/24 16:24 Temperature Temperature Source Pulse Rate 102 H Respiratory Rate 16 Blood Pressure 122/72 H BP Systolic 122 BP Diastolic 72 Pulse Ox 07/14/24 16:24 07/14/24 16:24 07/14/24 16:29 Temperature Temperature Source Pulse Rate Respiratory Rate 16 Blood Pressure 114/69 BP Systolic 114 BP Diastolic 69 Pulse Ox 100 07/14/24 16:29 07/14/24 16:29 07/14/24 16:29 Temperature Temperature Source Pulse Rate 96 94 Respiratory Rate Blood Pressure BP Systolic BP Diastolic Pulse Ox 100 07/14/24 16:34 07/14/24 16:34 07/14/24 16:34 Temperature Temperature Source Pulse Rate 90 94 Respiratory Rate Blood Pressure 108/71 BP Systolic 108 BP Diastolic 71 Pulse Ox 07/14/24 16:34 07/14/24 16:34 07/14/24 16:39 Temperature Temperature Source Pulse Rate Respiratory Rate 16 Blood Pressure 107/70 BP Systolic 107 BP Diastolic 70 Pulse Ox 100 07/14/24 16:39 07/14/24 16:39 07/14/24 16:39 Temperature Temperature Source Pulse Rate 87 104 H Respiratory Rate Blood Pressure BP Systolic BP Diastolic Pulse Ox 100 07/14/24 16:39 07/14/24 16:44 07/14/24 16:44 Temperature Temperature Source Pulse Rate 106 H Respiratory Rate 16 Blood Pressure BP Systolic BP Diastolic Pulse Ox 100 07/14/24 16:46 07/14/24 16:46 07/14/24 17:18 Temperature Temperature Source Pulse Rate 83 Respiratory Rate Blood Pressure 126/75 H 94/55 L BP Systolic 126 94 BP Diastolic 75 55 Pulse Ox 07/14/24 17:18 07/14/24 17:18 07/14/24 17:18 Temperature 98.2 F Temperature Source Pulse Rate 86 Respiratory Rate 16 Blood Pressure BP Systolic BP Diastolic Pulse Ox 07/14/24 17:48 07/14/24 17:48 07/14/24 19:24 Temperature Temperature Source Pulse Rate 78 Respiratory Rate Blood Pressure 100/58 L 118/64 BP Systolic 100 118 BP Diastolic 58 64 Pulse Ox 07/14/24 19:24 07/14/24 20:40 07/14/24 20:40 Temperature Temperature Source Pulse Rate 98 82 Respiratory Rate Blood Pressure 114/70 BP Systolic 114 BP Diastolic 70 Pulse Ox Weight Weight: 143 lb 4.807 oz Body Mass Index (BMI) 23.1 Physical Exam Const alert, oriented x3 and healthy appearing Constitutional Narrative: uncomfortable with contractions HEENT normocephalic and moist oral mucous membranes Head and Scalp: atraumatic Neck full ROM, no lymphadenopathy, supple and thyroid normal General: trachea midline Thyroid: thyroid normal Lymph Lymphatic: no lymphadenopathy noted Chest inspection of chest normal Resp normal respiratory effort Cardio regular rate GI soft to palpation and non-tender GI Narrative: gravid Inspection: gravid external exam normal Bimanual Exam - Vag & Uterus: uterus non-tender Manual OB Exam: estimated gestational size appropriate, presentation c ephalic, dilated, effaced and station Extremity normal to inspection General Extremity: Negative for edema Skin no rashes or lesions noted Neuro deep tendon reflexes 2+ bilaterally Motor Exam: strength 5/5 throughout and clonus absent Psych mental status grossly normal Labs Labs Labs: Blood Type A POSITIVE Antibody Screen NEGATIVE Hct 39.7 % (37-47) Hgb 13.9 g/dL (12.0-15.0) Obstetrics Ultrasound Syphilis Total Ab Nonreactive (Nonreactive) Rubella IgG Antibody Reactive (Nonreactive) Hep Bs Antigen Non-Reactive (Nonreactive) Hepatitis C Antibody Non-Reactive (Nonreactive) Chlamydia DNA ([facility]) Negative (Negative) N.gonorrhoeae DNA ([facility]) Negative (Negative) HIV 1&2 Antibody Nonreactive (Nonreactive) Glucose 1 Hr 50 gm 110 mg/dL (70-140) Rhogam given: No Assessment & Plan (1) UTI (urinary tract infection) during : COMMENT: 37 weeks (2) Supervision of high-risk : QUALIFIERS: Trimester: third trimester Qualified Code(s): O09.93 - Supervision of high risk , unspecified, third trimester COMMENT: PRR,, HUNG 08/02/24, [facility] Javier Barnett Jacob, Sebastian (3) Hx of pre-eclampsia in prior , currently : COMMENT: baseline labs ordered, recommend 81 mg ASA at 14 weeks (4) Hx successful (vaginal after ), currently : COMMENT: plan TOLAC again. 2 previous VBACs (5) Hx of section: COMMENT: 1st (6) : QUALIFIERS: Weeks of gestation: 37 weeks Qualified Code(s): Z3A.37 - 37 weeks gestation of COMMENT: normal anatomy, declined NIPT & Carrier testing PLAN: Plan Patient presents IAL, plan expectant management for , pitocin/AROM PRN if needed. Pain management: plans epidural. GBS neg. Management of any complications: none I have reviewed the [facility] and made any clinically relevant updates.
[2024-07-14] MEDS: Oxytocin 15 Units/NS 250ml 15 UNITS/250 ML IV.SOLN 334 UNITS IV (22:10)
--- NOTE | 2024-07-14 22:18 | OB.VAGDELI_ITS ---
Assessment & Plan (1) , delivered, current hospitalization: COMMENT: SM romana 37 Maternal Data Information HUNG Calculator Estimated Delivery Date Method Current Current Estimate 08/02/24 LMP (Certain) 37w 2d Vaginal Delivery Maternal Presentation Maternal Presentation: see assessment and plan Vaginal Delivery Information Procedure Performed: Surgeon/Practitioner: Hansa Mendoza Pre-Procedure Diagnosis: see assessment and plan Post-Procedure Diagnosis: same Type of anesthesia: Epidural Estimated Blood Loss: 200 Findings Description of procedure: Patient began pushing and delivered the head in the JOSÉ presentation. The head was delivered atraumatically and a tight nuchal cord x 2 was seen unable to be reduced or delivered through, after the anterior shoulder delivered it was clamped and cut on the perineum, The rest of the anterior and then the posterior shoulders delivered without complication followed by the rest of the infant and the was placed on the maternal abdomen. gentle traction was applied to the cord and the placenta delivered spontaneously immediately follo wing it was noted to be intact with three-vessel cord. The perineum and vagina were inspected and was noted to have a first -degree laceration that was repaired in the usual fashion with 3-0 vicryl rapide noted to have no laceration. EBL was 200. Patient and infant tolerated delivery well. Presentation: Vertex Placental Delivery Description: Spontaneous Specimen collected: Yes Description of specimen(s) removed: placenta Fitness Manager kennel manager dog track: No Post Vaginal Deli Medications given after delivery: Other (pitocin) Complication Complications: No Multi Select Codes Urinary/Genital Urinary/Genital CPT Codes: 45789 delivery [facility]
--- NOTE | 2024-07-14 22:21 | DCINST_ITS ---
Discharge Instructions Diet Discharge Diet: No restrictions DC O2, CPAP, BIPAP needs Home O2 Discharge instructions: No Dressing / Incision Discharge Activity: Return to Normal Activity, May Not Drive (while taking narcotic pain medications.) and May Shower May resume sexual activity in: 4-6 weeks Dressing / Incision Call your doctor if your incision/area has: Continuous Slow Oozing, Sudden Increased Bleeding, Increased Pain/ Swelling, Increased Redness and Foul Smelling Discharge Follow Up Care Please Follow Up With: Hansa Mendoza MD When: Call [phone] to make an appointment with your doctor in 6 weeks. If you had elevated blood pressure or 4th degree laceration, you will need to be seen in 2 weeks. Test Results: Test results from this visit will be discussed in further detail at your follow- up appointment, if applicable. Discharge Plan Admission Admit Date/Time: 07/14/24 13:15 Attending Provider: Hansa Mendoza Primary Care Provider: Perry Cevallos Discharge Orders/Prescriptions Prescriptions: No Action PNV-[place] 28-1-300 mg capsule 1 cap PO DAILY ondansetron 4 mg tablet,disintegrating 4 mg PO Q8H PRN (Reason: nausea and vomiting) Qty: 60 3RF meclizine 12.5 mg tablet 12.5 mg PO TID-QID PRN (Reason: dizziness) Qty: 60 0RF fosfomycin tromethamine 3 gram packet 3 g PO ONCE Qty: 1 0RF aspirin 81 mg tablet 81 mg PO DAILY Referrals / Follow Up: Perry Cevallos MD [Primary Care Provider] -
[2024-07-14] MEDS: Oxytocin 15 Units/NS 250ml 15 UNITS/250 ML IV.SOLN 83 UNITS IV (22:41)
[2024-07-15] VITALS (12 sets, daily range): BP systolic 101–124; BP diastolic 65–87; PULSE 66–100; RESP 16–18; TEMP 36.4–36.6; O2SAT 97–98
[2024-07-15] MEDS: Naproxen 500 MG Tablet PO ×2 (01:14→12:31)
[2024-07-15] MEDS: Acetaminophen 500 MG Tablet 1000 MG PO (05:26)
[2024-07-15] MEDS: Senna/Docusate Sodium 1 Tablet PO (10:25)
[2024-07-15] MEDS: Cephalexin 500 MG Capsule PO ×2 (10:25→22:10)
[2024-07-15] MEDS: Meclizine 12.5 MG Tablet PO (20:27)
[2024-07-16 02:58] VITALS: BP 98/74; PULSE 76; RESP 16; TEMP 36.3
[2024-07-16] MEDS: Meclizine 12.5 MG Tablet PO (07:51)
[2024-07-16 08:00] VITALS: BP 113/79; PULSE 91; RESP 16; TEMP 37.1
--- NOTE | 2024-07-16 10:23 | PCM.PN.OB ---
Subjective Subjective Patient doing well without complaints. Tolerating PO. Ambulating and voiding without difficulty. feeding well. Denies chest pain, shortness of breath, calf pain/swelling, fevers, chills, lightheadedness. Objective Data Objective Data Vital Signs: Vital Signs Temp Pulse Resp BP Pulse Ox O2 Del Method 98.8 F 91 16 113/79 97 Room Air 07/16/24 08:00 07/16/24 08:00 07/16/24 08:00 07/16/24 08:00 07/15/24 00:21 07/16/24 02:58 Oxygen Delivery Method Room Air Weight: 143 lb 4.807 oz Body Mass Index (BMI) 23.1 Intake & Output: Intake and Output for Last 24 Hours 07/14/24 07/15/24 07/16/24 23:59 23:59 23:59 Intake Total 2088.34 / 2088.34 250 / 250 Output Total 200 / 200 300 / 300 Balance 1888.34 / 1888.34 -50 / -50 Lab / Micro Data 07/14/24 15:30 ROS Constitutional Constitutional: Reports systems reviewed and no addt'l complaints, except as documented Cardiovascular Cardiovascular: Reports systems reviewed and no addt'l complaints, except as documented Respiratory/Chest Respiratory/Chest: Reports systems reviewed and no addt'l complaints, except as documented Gastrointestinal Gastrointestinal: Reports systems reviewed and no addt'l complaints, except as documented Physical Exam Const alert, oriented x3 and no apparent distress HEENT Head and Scalp: atraumatic Resp normal respiratory effort GI soft to palpation and non-tender Bimanual Exam - Vag & Uterus: uterus non-tender Uterus Palpation: uterus fundus firm (below Umbilicus) Assessment & Plan (1) , delivered, current hospitalization: COMMENT: romana 37 PLAN: Plan s/p PPD # 1 1. routine post delivery care 2. breast feeding- support given 3. rh positive 4. rubella immune
--- NOTE | 2024-07-21 11:27 | NURSING ---
Follow up phone call made, no answer, left voicemail
== END 2024-07-16 10:20 | disposition home or self-care (01) | DRG 807 ==
LOC: WPOUT 13:28 → WP 13:29
PROVIDERS: Admitting Provider Obstetrics & Gynecology; PCP Family Medicine; Referring Provider Obstetrics & Gynecology; Visit Provider Obstetrics & Gynecology
DX: O23.43 Unspecified infection of urinary tract in pregnancy, third trimester (principal); Z37.0 Single live birth; O34.219 Maternal care for unspecified type scar from previous cesarean delivery; O69.1XX0 Labor and delivery complicated by cord around neck, with compression, not applicable or unspecified; O70.0 First degree perineal laceration during delivery; Z3A.37 37 weeks gestation of pregnancy; Z87.59 Personal history of other complications of pregnancy, childbirth and the puerperium; Z79.82 Long term (current) use of aspirin
CPT/HCPCS: 59025; 59050; 76815; 81001; 85025; 86780; 86850; 86900; 86901; 87086; 87088; 99221; A4216; G0378; J2405

== ENCOUNTER 2024-08-29 12:51 | Emergency (ER) | payer OTHER, SELFPAY ==
[2024-08-29 12:53] VITALS: BP 127/78; PULSE 132; RESP 18; TEMP 37.3; O2SAT 99
--- NOTE | 2024-08-29 13:37 | US_ITS ---
PROCEDURE: BREAST LIMITED UNILATERAL 08/29/2024 REASON FOR EXAM: F, Age 34 y/o , PAIN, FEVER Patient is currently breast-feeding. She 6 weeks . COMPARISON: None. TECHNIQUE: BREAST LIMITED UNILATERAL FINDINGS: There is heterogeneous echotexture identified throughout the right breast from the 7 o'clock to 10 o'clock position showing hypervascularity. There is minimally dilated ducts through this region. This does correlate to the area of pain. These findings are compatible with mastitis. There is no abscess to drain. There are no suspicious masses seen to suggest malignancy. US/Breast Limited Unilateral IMPRESSION: The area of pain appears to represent mastitis. The patient may benefit by mell ng placed on an antibiotic. Follow-up ultrasound in 1 month is recommended for re-evaluation. BI-RADS 3: PROBABLY BENIGN. RECOMMENDATION: Routine annual follow-up in 1 Year Reading Location: [id number]
[2024-08-29 14:01] LABS: Hematocrit 40.3 % (37-47); Hemoglobin 14.2 g/dL (12.0-15.0); Immature Granulocytes Count 0.030 X10^3/uL (0.0-0.0); Mean Corp Hgb Conc 35.2 g/dL (32-36); Mean Corpuscular Volume 89.4 fL (81-99); Mean Platelet Vol. 9.9 fl (6.2-12.0); NRBC Flagged by Analyzer 0 % (0-5); POSITIVE MORPHOLOGY YES; Platelet Count 146 K/mm3 (150-450); RBC Distribution Width CV 11.9 % (11.6-14.6); RBC Distribution Width SD 38.3 fl (35.1-43.9); Red Blood Count 4.51 M/mm3 (4.2-5.4); White Blood Count 4.1 K/mm3 (4.4-11.0)
[2024-08-29 14:02] LABS: Differential Indicated SCAN CRITERIA MET
[2024-08-29 14:21] LABS: Anion Gap 11 (5-15); BUN 9 mg/dL (4-19); BUN/Creat Ratio 13.1 RATIO (10-20); Calcium,Total 8.8 mg/dL (7.6-11.0); Carbon Dioxide 23.1 mmol/L (21.0-32.0); Chloride 102 mmol/L (98-108); Estimated Creatinine Clearance 107.91 ml/min (50-250); Glucose 97 mg/dL (70-99); Potassium 3.9 mmol/L (3.3-5.1)
--- NOTE | 2024-08-29 14:21 | EX.ED.DYSGE1 ---
HPI History of Present Illness Chief Complaint: Other, Pain/Inj Detail of Chief Complaint: R breast pain Informant: patient Narrative Narrative: 34-year-old healthy female with a 6-week old infant that she has been breast-feeding, and for the past 4 or 5 days she has had gradual onset of pain and some swelling in the right lateral breast, in addition to persistent fevers despite taking Tylenol. She denies any discharge other than milk when she is breast-feeding. She has been taking dicloxacillin for the last 4 days and she is not getting any better, so her central sterile technician suggested she come to the ER for evaluation. [facility] Medical History , delivered, current hospitalization Frequent UTI Vaginal after , delivered, current hospitalization Family history of breast cancer Vaginal after Asymptomatic bacteriuria History of pre-eclampsia Home Medications ?Medication ?Instructions ?Recorded ?Last Taken ?Type multivit-min no.71-iron fum 28 1 cap PO DAILY 12/08/23 08/28/24 History mg-folate no.1 1 mg-dha 300 mg capsule (PNV-[place]) Lactobacillus acidophilus 10 10,000 mmu cells PO DAILY 08/29/24 08/28/24 History billion cell capsule (Probacap) acetaminophen 500 mg capsule 1,000 mg PO Q6H PRN pain 08/29/24 08/29/24 History clindamycin HCl 300 mg capsule 300 mg PO Q6H #40 CAPSULES 08/29/24 Unknown Rx (Cleocin HCl) d-mannose 500 mg capsule (AZO 1,000 mg PO DAILY recurrent uti 08/29/24 08/28/24 History D-Mannose) Allergy/AdvReac Type Severity Reaction Status Date / Time No Known Allergies Allergy Verified 08/29/24 12:53 Family History Mother Breast cancer, Onset Age: 41 Grandfather No problems noted. Father Melanoma Grandfather No problems noted. 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 [employer] current occupational exposures/hazards: No pets and animals: No history of recent travel: Yes ([place]) out of state: Yes out of country: Yes sexually active: Yes Smoking Status: Never smoker alcohol intake: never substance use type: does not use well-balanced diet: daily or most days caffeine: Yes Type: coffee Number of servings: 1 eating out: rarely or never during the past year weight has: remained stable what type of physical activity do you participate in: none kristy/tenriism: Jainism seatbelt use: always do you feel safe at home: Yes additional social history: [employer] 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 ED Constitutional Constitutional ED: Reports body ache(s), chills, fever(s) and headache(s) Eyes Eyes: Denies change in vision or diplopia ENT ENT ED: Denies rhinorrhea or sore throat Cardiovascular Cardiovascular: Denies chest pain or palpitations Respiratory/Chest Respiratory/Chest: Reports other Details: R breast pain ; Denies cough or dyspnea Gastrointestinal Gastrointestinal: Denies abdominal pain, diarrhea, nausea or vomiting Genitourinary Genitourinary ED: Denies dysuria or hematuria Musculoskeletal Musculoskeletal: Denies back pain or neck pain Integumentary Denies abscess or rash Neurologic Neurologic: Reports headache(s); Denies paresthesias or weakness Psychiatric Psychiatric: Denies anxiety or suicidal thoughts EXAM Physical Exam Const Vital Signs: 08/29/24 12:51 08/29/24 12:53 Temperature 99.1 F Temperature Source Oral Pulse Rate 132 H Respiratory Rate 18 Respiratory Effort Normal Non-Labored Respiratory Pattern Normal Blood Pressure 127/78 H Blood Pressure Mean 94 Pulse Ox 99 Oxygen Delivery Method Room Air Positive well nourished and well developed Constitutional Narrative: Well-appearing General Appearance ED: well developed and NAD HEENT Reports moist mucous membranes normocephalic and atraumatic Eyes PERRL and EOMs intact bilaterally Neck full ROM and supple Chest Wall Chest Narrative: Right breast: No significant erythema, no nipple or areolar tenderness/abscess, there is tenderness lateral aspect of the right breast, and what feels like thickened area, possible induration versus subcutaneous abscess. Resp normal respiratory effort and clear to auscultation bilaterally Cardio regular rate, regular rhythm and no murmurs GI non-distended Extremity normal to inspection General Extremety ED: Negative for edema, pulses abnormal or tenderness General Extremity: Negative for edema or pulses abnormal Neuro oriented x3, CN's II-XII intact bilaterally and no sensory deficits noted Sensorium / Orientation: awake and alert Motor Exam: strength 5/5 throughout Psych mental status grossly normal Skin no rashes or lesions noted and no wounds MDM MDM MDM Narrative Medical decision making narrative: Discussed with Dr. Mendoza the patient's central sterile technician, who suggests evaluating for abscess since she should be improving on antibiotics by now. Therefore labs and an ultrasound were obtained. I reviewed the images and on my interpretation, ther is no acute abscess/collection. Her labs are normal and she is well-appearing not septic. Therefore we are going to change her to clindamycin, she was given an initial IV dose here, and will be advised to start the new prescription and discontinue the dicloxacillin and follow-up closely in the office. History & Record Review Discussion w/independent historian: Patient Lab Data Attestation: I reviewed the patient's lab results. Labs: Laboratory Results - last 24 hr 08/29/24 13:35 WBC 4.1 L RBC 4.51 Hgb 14.2 Hct 40.3 MCV 89.4 MCH 31.5 MCHC 35.2 RDW Std Deviation 38.3 RDW Coeff of Janki 11.9 Plt Count 146 L MPV 9.9 Immature Gran % (Auto) 0.700 Neut % (Auto) 69.9 Lymph % (Auto) 20.5 Spencer % (Auto) 7.9 Eos % (Auto) 0.0 Baso % (Auto) 1.0 Absolute Neuts (auto) 2.8 Absolute Lymphs (auto) 0.83 Nucleated RBC % 0 Differential Comment SCANNED Platelet Estimate SLT DEC Sodium 136 Potassium 3.9 Chloride 102 Carbon Dioxide 23.1 Anion Gap 11 BUN 9 Creatinine 0.66 L Estim Creat Clear Calc 107.91 Est GFR (MDRD) Non-Af 119 BUN/Creatinine Ratio 13.1 Glucose 97 Calcium 8.8 Management Discussion w/another healthcare provider: Underwriting Operations Manager (Gynecology) Discharge Plan Triage Chief Complaint: Other, Pain/Inj ED Provider: Hemant Trimble Dx/Rx/DC Orders Clinical Impression: Acute mastitis of right breast Instructions: ED Mastitis Prescriptions: New clindamycin HCl [Cleocin HCl] 300 mg capsule 300 mg PO Q6H Qty: 40 0RF Continued PNV-[place] 28-1-300 mg capsule 1 cap PO DAILY acetaminophen 500 mg capsule 1,000 mg PO Q6H PRN (Reason: pain) AZO D-Mannose 500 mg capsule 1,000 mg PO DAILY Probacap 10 billion cell capsule 10,000 mmu cells PO DAILY Rx Instructions: not sure of strength, gets otc Discontinued dicloxacillin 500 mg capsule 500 mg PO Q6H Primary Care Provider: Perry Cevallos Referrals: Hansa Mendoza MD [Med Staff - Active Staff] - As soon as possible Print Language: Nepalese Disposition Disposition: Home, Self Care
[2024-08-29 14:57] LABS: Differential Comment SCANNED
[2024-08-29] MEDS: Clindamycin 600 MG/50 ML BAG 100 MG IV (15:36)
[2024-08-29 16:51] VITALS: BP 122/74; PULSE 98; RESP 16; O2SAT 99
--- NOTE | 2024-08-29 17:50 | ED.RN ---
pt states that she does not want to wait any longer and would like to go home after being informed of the delay with radiology. dr pretty updated. pt to be called if ultrasound comes back abnormal. pt states understanding.
[2024-08-29 17:52] VITALS: BP 112/81; PULSE 89; RESP 14; TEMP 37.6; O2SAT 100
== END 2024-08-29 17:53 | disposition home or self-care (01) ==
PROVIDERS: Emergency Provider Emergency Medicine; PCP Family Medicine; Visit Provider Emergency Medicine
DX: N61.0 Mastitis without abscess (principal); N64.4 Mastodynia; R51.9 Headache, unspecified
CPT/HCPCS: 76642; 80048; 85025; 96365; 99283; A4216